=== PATIENT | female | born 1940 | race Caucasian/White ===

== ENCOUNTER → 2023-08-22 11:59 | Outpatient (REF) | payer OTHER, SELFPAY ==
[2023-08-22 13:39] LABS: Blood Urea Nitrogen 44 mg/dl (7-17); Calcium 10.3 mg/dl (8.4-10.2); Carbon Dioxide 23 mmol/L (22-30); Chloride 99 mmol/L (98-107); Glucose 152 mg/dl (70-99); Potassium 4.1 mmol/L (3.5-5.1); Sodium 139 mmol/L (135-145); eGFR 29.76
== END ==
LOC: OLABPV 11:59
PROVIDERS: ATTENDING PHYSICIAN Family Medicine
DX: R79.9 Abnormal finding of blood chemistry, unspecified (principal)
CPT/HCPCS: 36415; 80048

== ENCOUNTER → 2023-09-05 11:51 | Outpatient (REF) | payer OTHER, SELFPAY ==
[2023-09-05 13:19] LABS: Blood Urea Nitrogen 42 mg/dl (7-17); Calcium 10.3 mg/dl (8.4-10.2); Carbon Dioxide 25 mmol/L (22-30); Chloride 102 mmol/L (98-107); Glucose 181 mg/dl (70-99); Potassium 4.2 mmol/L (3.5-5.1); Sodium 138 mmol/L (135-145); eGFR 26.04
== END ==
LOC: OLABPV 11:51
PROVIDERS: ATTENDING PHYSICIAN Family Medicine
DX: N18.31 Chronic kidney disease, stage 3a (principal)
CPT/HCPCS: 36415; 80048

== ENCOUNTER → 2023-09-11 09:35 | Outpatient (REF) | payer OTHER, SELFPAY | LOC: RAD 09:35 | PROVIDERS: ATTENDING PHYSICIAN Nurse Practitioner Adult Health | DX: I10 Essential (primary) hypertension (principal); N32.81 Overactive bladder; N18.32 Chronic kidney disease, stage 3b | CPT/HCPCS: 76770 ==

== ENCOUNTER → 2023-09-25 11:18 | Outpatient (REF) | payer OTHER, SELFPAY ==
[2023-09-25 12:14] LABS: Blood Urea Nitrogen 36 mg/dl (7-17); Calcium 9.8 mg/dl (8.4-10.2); Carbon Dioxide 27 mmol/L (22-30); Chloride 103 mmol/L (98-107); Glucose 133 mg/dl (70-99); Sodium 140 mmol/L (135-145); eGFR 56.25
== END ==
LOC: OLABPV 11:18
PROVIDERS: ATTENDING PHYSICIAN Nurse Practitioner Adult Health
DX: E11.69 Type 2 diabetes mellitus with other specified complication (principal); N18.31 Chronic kidney disease, stage 3a
CPT/HCPCS: 36415; 80048

== ENCOUNTER → 2023-11-22 14:24 | Outpatient (REF) | payer OTHER, SELFPAY | LOC: EMG 14:24 | PROVIDERS: ATTENDING PHYSICIAN Physician Assistant | DX: M54.16 Radiculopathy, lumbar region (principal); R29.898 Other symptoms and signs involving the musculoskeletal system | CPT/HCPCS: 95886; 95911 ==

== ENCOUNTER → 2024-01-15 13:23 | Outpatient (REF) | payer OTHER, SELFPAY | LOC: PAVMRI 13:23 | PROVIDERS: ATTENDING PHYSICIAN Physician Assistant; FAMILY PHYSICIAN Family Medicine | DX: M54.16 Radiculopathy, lumbar region (principal); Z98.890 Other specified postprocedural states | CPT/HCPCS: 72158; A9575 ==

== ENCOUNTER 2024-02-14 18:21 | Inpatient (IN) | payer OTHER, SELFPAY ==
[2024-02-14] VITALS (11 sets, daily range): BP systolic 167–197; BP diastolic 62–89; BMI 35.5; BMI 34.5
[2024-02-14 15:17] LABS: Glucose - Point of Care 121 mg/dl (70-99)
--- NOTE | 2024-02-14 15:28 | CON.NEURO ---
Consultation
Order
Date of Consultation: 02/14/24
Requesting Provider:
Reason for Consult: stroke alert
pre hospital notification called in: 14:49
HPI: This is an 83-year-old right-handed woman who presented to [facility] on February 14, 2024 with language dysfunction. According to the patient she developed difficulties expressing her thoughts around 2 PM today shortly after she
completed her physical therapy. No associated headaches, change in vision strength, sensation or history of seizures. Ms. Muniz states that her deficits have nearly resolved. SBP by EMG was reportedly in 190s.
ER VS: 167/76,78, afebrile.
Labs: pending.
CT head-moderate subcortical and periventricular white matter hypodensities; chronic lacunar infarct within the left denny radiata.
CTA Head: No large vessel occlusion.
CTA Neck: 50% stenosis of the proximal right ICA
PDMP: Oxycodone-Acetaminophen 5-325 28 tabs filled in on 01/24/2024, 12/13/2023
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
PSH: laminectomies at L2, L3, and L4, BL TKA,
SH: resident at [facility], nonsmoker
FH:no FH of strokes
All:JUNIOR Inhibitors
ROS:Constitutional: Negative. Negative for chills, fever and unexpected weight change.
Eyes: Negative. Negative for photophobia, pain and visual disturbance.
Respiratory: Negative for cough, choking and shortness of breath.
Cardiovascular: Negative for chest pain, palpitations and leg swelling.
Endocrine: Negative. Negative for cold intolerance.
Genitourinary: Negative for dysuria, flank pain and urgency.
Musculoskeletal: positive for back pain
Skin: Negative for rash.
Allergic/Immunologic: Negative. Negative for immunocompromised state.
Neurological: positive for chronic R leg numbness and L leg weakness, transient aphasia
General: Well developed. In no acute distress.
Cardio: Regular rate and rhythm without murmur. Extremities are without cyanosis or edema.
Neuro:
Mental Status: Alert, oriented to self, place. Anxious. Able to correctly name all items on NIH cards. No hemineglect
Cranial Nerves: Pupils are equally round and reactive to light. EOMs full. Visual hahn full to confrontation. No ptosis. No nystagmus. V1-V3 intact to light touch and pinprick bilaterally, symmetric. Face symmetric. Mildly impaired hearing
AU. The palate elevated well. SCMs and traps 5/5. Tongue midline. No dysarthria.
Motor: NO PD or leg drift
Reflexes: 2+ throughout the upper extremities and knees. 2/2 in AJs. Plantar responses flexor bilaterally.
Sensory: no extinction to DSS
Coordination: No dysmetria
Gait: deferred
Assessment and Plan:
I. Acute L MCA territory TIA.
II. Hypertensive emergency
III. Severe L4/L5 central canal stenosis with R radiculopathy
IV. Chronic left denny radiata infarct.
-Continue Telemetry monitoring.
-Aspiration precautions.
-Cautious lowering of BP by approximately 15 % during the first 24 hours is SBP >220 mmHg or diastolic blood pressure >120 mmHg;
-Restart antihypertensive medications during if BP>140/90 mmHg who are neurologically stable in 24 to 48 hours after stroke onset;
-TTE with bubble studies
-Continue ASA 81 mg QD indefinitely.
-Plavix 75 mg QD for 21 days.
-Lipitor 40 mg QHS.
-Please check HbA1C, LDL.
-HAMZAH/ILR if no events of Telemetry and normal TTE.
-PT.
-DVT prophylaxis.
I personally reviewed all radiology and labs along with past medical records pertinent to current medical problems. Total time spent in patient care is 60 minutes.
Thank you for allowing us to participate in the care of this patient. We will continue to follow. Please do not hesitate to contact us with any questions or concerns.
This is a 81
Subjective/Objective
Subjective Data
Date of Service: February 14, 2024
Objective Data
Vital Signs
Temp Pulse Resp BP Pulse Ox
36.9 C 78 14 167/76 98
02/14/24 15:20 02/14/24 15:20 02/14/24 15:20 02/14/24 15:20 02/14/24 15:20
Patient Allergies
codeine [Codeine] Allergy (Verified 02/14/24 15:27)
Nausea
Medications
-
Home Medications
�Medication �Instructions �Recorded
levothyroxine 125 mcg tablet 88 mcg PO DAILY 03/09/09
(Synthroid)
propranolol 120 mg capsule,24 120 mg PO DAILY 03/09/09
hr,extended release
Chlorthalidone 25 mg PO DAILY 12/08/10
atorvastatin 40 mg tablet 40 mg PO DAILY 05/11/13
losartan 100 mg tablet (Cozaar) 100 mg PO DAILY 05/11/13
metformin 500 mg tablet 850 mg PO DAILY 05/11/13
duloxetine 20 mg capsule,delayed 20 mg PO DAILY 08/26/18
release
trimethoprim 100 mg tablet 100 mg PO DAILY 08/26/18
(Proloprim)
acetaminophen 325 mg tablet 650 mg (2 x 325 mg) PO Q4HPRN PRN 08/28/18
mild pain/RICHMOND/temp> 100.4F
aspirin 325 mg tablet,delayed 325 mg PO DAILY 08/28/18
release
docusate sodium 100 mg capsule 100 mg PO BID 08/28/18
gabapentin 400 mg capsule 1,200 mg (3 x 400 mg) PO BID ##60 08/28/18
oxycodone 5 mg tablet 5 mg PO Q4HPRN PRN mild pain ##12 08/28/18
sennosides 8.6 mg tablet (senna) 2 tab PO BID 08/28/18
Vital Signs and Labs
-
Vital Signs and Labs:
Vital Signs
Temp Pulse Resp BP Pulse Ox
36.9 C 74 14 187/87 97
02/14/24 15:20 02/14/24 15:30 02/14/24 15:30 02/14/24 15:30 02/14/24 15:30
Lab Results
02/14/24 15:32
Home Medications
-
Home Medications
levothyroxine 125 mcg tablet (Synthroid) 88 mcg PO DAILY 03/09/09
propranolol 120 mg capsule,24 hr,extended release 120 mg PO DAILY 03/09/09
Chlorthalidone 25 mg PO DAILY 12/08/10
atorvastatin 40 mg tablet 40 mg PO DAILY 05/11/13
losartan 100 mg tablet (Cozaar) 100 mg PO DAILY 05/11/13
metformin 500 mg tablet 850 mg PO DAILY 05/11/13
duloxetine 20 mg capsule,delayed release 20 mg PO DAILY 08/26/18
trimethoprim 100 mg tablet (Proloprim) 100 mg PO DAILY 08/26/18
acetaminophen 325 mg tablet 650 mg (2 x 325 mg) PO Q4HPRN PRN mild pain/RICHMOND/temp> 100.4F 08/28/18
aspirin 325 mg tablet,delayed release 325 mg PO DAILY 08/28/18
docusate sodium 100 mg capsule 100 mg PO BID 08/28/18
gabapentin 400 mg capsule 1,200 mg (3 x 400 mg) PO BID ##60 08/28/18
oxycodone 5 mg tablet 5 mg PO Q4HPRN PRN mild pain ##12 08/28/18
sennosides 8.6 mg tablet (senna) 2 tab PO BID 08/28/18
[2024-02-14 15:40] LABS: % Basophils 0.3 % (0-2); % Eosinophils 2.2 % (0-6); % Immature Granulocytes 0.3 % (0-0.5); % Lymphocytes 13.9 % (20.5-51.1); % Monocytes 9.8 % (1.7-9.3); % Neutrophils 73.5 % (42.2-75.2); Absolute Eosinophils 0.2 10^3/uL (0-0.7); Absolute Monocytes 0.7 10^3/uL (0.1-0.6); Absolute Neutrophils 5.3 10^3/uL (1.4-6.5); Mean Corp Hgb Conc. 35.1 g/dL (33.0-37.0); Mean Corpuscular Hgb 29.8 pg (27.0-31.0); Mean Corpuscular Volume 84.9 fL (81.0-99.0); Mean Platelet Volume 10.4 fL (7.4-10.4); Nucleated Red Blood Cells % 0 %; Platelet Count 245 10^3/uL (130-400); Red Blood Cell Count 4.36 10^6/uL (4.20-5.40); Red Cell Dist. Width 13.2 % (11.5-14.5); White Blood Cell Count 7.1 10^3/uL (4.8-10.8)
[2024-02-14 15:50] LABS: PT 14.3 Sec (11.4-14.6)
[2024-02-14 15:51] LABS: APTT 32.2 Sec (23.4-35.0)
--- NOTE | 2024-02-14 16:03 | ED.CVA ---
History of Present Illness
General
Chief Complaint: CVA/TIA Symptoms
Source: patient, records and ambulance crew
Exam Limitations: none
Time Seen by Provider: 02/14/24 15:30
Nursing documentation reviewed up to this point in time: agreed with
Onset of Stroke Symptoms
Onset of symptoms known: Yes
Date of onset of symptoms: 02/14/24
Time of onset of symptoms: 13:00
Time pt last seen normal is known: Yes
Date last time pt seen normal: 02/14/24
Time last time pt seen normal: 12:00
History of Present Illness
History of Present Illness:
Patient is a 83-year-old female who was at physical therapy today and when she came out to get on her scooter she was talking to friends but not making any sense. Patient knew the words that she wanted to say but they were coming out wrong.
Patient denied any visual changes no new focal weakness. Patient has spinal stenosis and feels like her right side is weaker than her left as well as her lower extremities being weaker but this remained unchanged. Patient denied any ataxia.
Patient denies any previous history of similar episodes. Patient denied any GI or symptoms. Patient denies headache, chest pain, shortness of breath or palpitations. Patient denies any recent illnesses or injuries. Patient did get a recent
COVID-vaccine.
Past History
Past History
ED Past Medical History: GERD, HTN, Hypercholesterolemia, NIDDM and Other (Neuropathy, spinal stenosis, DJD, irritable bowel, diverticulosis, glaucoma)
Social History
Tobacco: Non-smoker
Personal:
Living: with family
Review of Systems
Review of Systems
All Other Systems: ROS reviewed and negative except as documented in HPI and ROS
Constitutional: Reports no symptoms
EENT: Reports no symptoms
Respiratory: Reports no symptoms
Cardiac: Reports no symptoms
ABD/GI: Reports no symptoms
: Reports no symptoms
Musculoskeletal: Reports no symptoms
Skin: Reports no symptoms
Neurological: Reports other (Speech difficulty); Denies headache, weakness or numbness
Hematologic/Lymphatic: Reports no symptoms
Psychiatric: Reports no symptoms
Phy Exam
Physical Exam
Physical Exam:
Physical Exam
General: No apparent distress, alert and appropriate, obese, well hydrated
HENT: Normocephalic, supple with no lymphadenopathy, no thyromegaly
Eyes: Clear sclera, conjuctiva without injection
Heart: Regular rhythm and rate. No S3, S4. No murmur. No NVD, bruit
Lungs: No respiratory distress, no stridor, lung sounds clear and equal bilaterally
Abdomen: Soft, nontender, no organomegaly, no CVA tenderness, BS good
Neuro: Alert and oriented x 3, CN II - XII intact, no motor focality, no cerebellar dysfunction
Skin: no rash
Psychiatric: well kept. interactive and cooperative
Extremities: No edema, cyanosis, tenderness, Good and equal peripheral pulses.
Scores
NIH Stroke Score
Level of Consciousness: 0 - Alert
LOC Questions: 0-Answers both correctly
LOC Commands: 0-Performs both correctly
Best Horizontal Gaze: 0-Normal
Visual Morales: 0=Normal, no visual loss
Facial Palsy: 0=Normal, symmetrical
Motor - Right Arm: 0=No drift 10 seconds
Motor - Left Arm: 0=No drift 10 seconds
Motor - Right Le-No drift 5 seconds
Motor - Left Le-No drift 5 seconds
Limb Ataxia: 0-Absent
Sensation: 0-Normal
Best Language: 0-No aphasia
Dysarthria: 0-Normal
Extinction and Inattention: 0-No abnormality
Total Score:: 0
Course
Orders/Labs/Results
Orders:
Orders
02/14/24 14:58
CT HEAD STROKE ALERT W/o Cont Stat
Comment:
Reason For Exam: stroke alert/ expressive aphasia
02/14/24 15:03
CT HEAD/NECK ANG STROKE ALERT Urgent
Comment:
Reason For Exam: stroke alert/ expressive aphasia
02/14/24 15:18
Electrocardiogram (*1) Urgent
Reason for Study: Other
Other Reason for Exam: Possible Stroke
Bedside Glucose- Treatment ONCE
Cardiac Monitoring- Treatment ONCE
EKG- Treatment ONCE
Vital Signs As Directed
Frequency: Other
Weight As Directed
Frequency: Once
Comment: ZERO STRETCHER SCALE FOR ACCURATE WEIGHT
02/14/24 15:32
Basic Metabolic Panel Urgent
Complete Blood Count/With Diff Urgent
PTT Urgent
Prothrombin Time Urgent
Troponin I Urgent
Abnormal Lab Results
02/14/24 02/14/24
15:16 15:32
Absolute Lymphs (auto) 1.0 L 10^3/uL
(1.2-3.4)
Absolute Monos (auto) 0.7 H 10^3/uL
(0.1-0.6)
Lymphocytes % 13.9 L %
(20.5-51.1)
Monocytes % 9.8 H %
(1.7-9.3)
POC Glucose 121 H mg/dl
(70-99)
02/14/24 15:32
02/14/24 15:32
Vital Signs
Initial and Last Documented VS:
Initial Vital Signs
Pulse Resp Pulse Ox
78 16 96
02/14/24 15:17 02/14/24 15:17 02/14/24 15:17
Last Documented Vital Signs
Temp Pulse Resp BP Pulse Ox
98.4 F 74 14 187/87 97
02/14/24 15:20 02/14/24 15:30 02/14/24 15:30 02/14/24 15:30 02/14/24 15:30
*Radiology
Radiology exam reviewed: radiology read reviewed (No major vessel occlusion and otherwise unremarkable)
*Pulse Oximetry
Patient hypoxic: no
*EKG
Interpreted by ED Provider?: Yes
EKG Intrepretation Date: 02/14/24
EKG Intrepretation Time: 16:08
Interpretation: normal
Comparison EKG: no changes
Heart Rate: 72
Rate: normal
Rhythm: sinus
[place]: normal axis
Interval: normal interval
QRS Pattern: normal QRS
Ischemia: no ischemia
*Collections Officer Interpretation
Rate: normal
Interpretation: normal
Heart Rate: 72
Rhythm: sinus
*Critical Care Note
Total Time (30-74mins, 75-104mins- exclusive of procedures): Not Applicable
ED Attending Note
-
Portions of this chart may have been created with voice recognition software.� Occasional wrong word or��sound alike� substitutions may have occurred due to the inherent limitations of voice recognition software.
Discharge Plan
Departure
Patient Disposition: Admit
Date of Disposition: 02/14/24
Time of Disposition: 16:09
Admit to: Telemetry
Admit to doctor: Hospitalist
Presentation/result/management discussed w/ accepting MD/DO: neurology
Patient with high blood pressure during this ER visit?: Yes
Condition: Fair
Covid-19: Not Applicable
Discharge Problem:
TIA (transient ischemic attack)
Prescriptions:
No Action
metformin 500 mg Tablet
500 mg PO DAILY
famotidine [Pepcid] 40 mg Tablet
40 mg PO HS
aspirin 81 mg Tablet,Delayed Release (Dr/Ec)
81 mg PO DAILY
levothyroxine [Synthroid] 88 mcg Tablet
88 mcg PO DAILY
pantoprazole [Protonix] 40 mg Tablet,Delayed Release (Dr/Ec)
40 mg PO DAILY
losartan 100 mg Tablet
100 mg PO DAILY
rosuvastatin [Crestor] 40 mg Tablet
40 mg PO QPM
mirabegron [Myrbetriq] 50 mg Tablet Extended Release 24 Hr
50 mg PO DAILY
acetaminophen [Tylenol Extended Release] 650 mg Tablet Extended Release
650 mg PO TID
oxycodone-acetaminophen [Percocet] 5-325 mg Tablet
1 tab PO Q6HPRN PRN (Reason: severe pain)
propranolol 120 mg Capsule,Extended Release 24hr
120 mg PO DAILY
Referrals:
JOSE FRANCISCO BANDA [Other]
Interventions
Interventions:
*Risk Screen - Suicide Last Done: 02/14/24 15:24
*General Assessment Last Done: 02/14/24 15:24
*Neglect/Abuse Screening Last Done: 02/14/24 15:24
ED- Fall Risk Assessment Last Done: 02/14/24 15:42
*ED COVID-19 Vaccine History Last Done: 02/14/24 15:24
ED- Pulmonary Assessment Last Done: 02/14/24 15:42
ED- Neurological Assessment Last Done: 02/14/24 15:42
ED- Cardiac Assessment Last Done: 02/14/24 15:42
ED Swallowing Screen Last Done: 02/14/24 15:42
Discharge Date and Time
Print Language: KYRGYZ
[2024-02-14 16:04] LABS: Troponin I < 0.012 ng/ml
[2024-02-14 16:05] LABS: Blood Urea Nitrogen 25 mg/dl (7-17); Carbon Dioxide 27 mmol/L (22-30); Chloride 103 mmol/L (98-107); Estimated Creatinine Clearance 51 ml/min; Glucose 129 mg/dl (70-99); Sodium 142 mmol/L (135-145); eGFR 56.25
--- NOTE | 2024-02-14 17:15 | HPS.HSE ---
Family Physician
-
Family Physician: JOSE FRANCISCO BANDA
Chief Complaint
-
Expressive aphasia
History of Present Illness
83-year-old female with chronic ambulatory dysfunction secondary to spinal stenosis chronic lower back pain. She goes to weekly physical therapy. While at physical therapy today she completed knee bends while sitting, standing in place while not
holding anything to steady her balance. She reports after walking out to go to her motorized scooter she attempted to sit down and turn the scooter on when she was having difficulty remembering how to do this. She reports her friend was present
with her at the time. She also reports she had difficulty expressing what she wanted to say according to her friend. She denies any headache, fever, chills, sore throat, recent illness, chest pain, palpitations, shortness breath, cough, abdominal
pain, nausea, vomiting, diarrhea, urinary symptoms. She currently is awake alert oriented x 3 with clear speech. She does have unsteady gait when standing from wheelchair to transfer to the bed, but this is chronic for the patient. She has past
medical history of CVA left denny radiata, Chronic back pain s/p laminectomy x 4,Spinal stenosis,Neuropathy, HTN, HLD, DM2, Hypothyroidism, Glaucoma,Mild aortic insufficiency, GERD, IBS, Stress incontinence urine, Frequent UTIs, OA, Chronic
ambulatory dysfunction, Frequent falls.
Medical History
Past Medical History
Past Medical History: Reports Other
Additional Past Medical History:
CVA
Chronic back pain s/p laminectomy x 4
Neuropathy
HTN
HLD
DM2
Hypothyroidism
Glaucoma
Mild aortic insufficiency
Spinal stenosis
GERD
IBS
Stress incontinence urine
Frequent UTIs
OA
Chronic ambulatory dysfunction
Frequent falls
Past Surgical History: Reports Other
Additional Past Surgical History:
Pins and right wrist 2002
Right torn meniscus 2002
Ovarian cyst 1977
Left total knee replacement March 2009
Right total knee replacement
Lumbar surgery 2010
Right TKR
Laminectomy x 4
Social History
Tobacco: Non-smoker
Alcohol: None
Drug: None
Personal: Single
Living: Alone
Employment: Retired
Family History
Family History: Not pertinent
Allergies / Home Medications
Allergies reflects when Allergies were last updated in [employer].
Home Medications with original date entered in [employer]
Allergy/Medication List:
Allergies
Allergy/AdvReac Type Severity Reaction Status Date / Time
codeine [Codeine] Allergy Nausea Verified 02/14/24 15:27
Home Medications
acetaminophen 650 mg tablet,extended release 650 mg PO TID 02/14/24
aspirin 81 mg tablet,delayed release 81 mg PO DAILY 02/14/24
famotidine 40 mg tablet (Pepcid) 40 mg PO HS 02/14/24
levothyroxine 88 mcg tablet (Synthroid) 88 mcg PO DAILY 02/14/24
losartan 100 mg tablet 100 mg PO DAILY 02/14/24
metformin 500 mg tablet 500 mg PO DAILY 02/14/24
mirabegron 50 mg tablet,extended release 24 hr (Myrbetriq) 50 mg PO DAILY 02/14/24
oxycodone-acetaminophen 5 mg-325 mg tablet (Percocet) 1 tab PO Q6HPRN PRN severe pain 02/14/24
pantoprazole 40 mg tablet,delayed release (Protonix) 40 mg PO DAILY 02/14/24
propranolol 120 mg capsule,24 hr,extended release 120 mg PO DAILY 02/14/24
rosuvastatin 40 mg tablet (Crestor) 40 mg PO QPM 02/14/24
Review of Systems
-
History Source: Patient
A 12 point ROS was completed and negative except as noted: Yes
Constitutional: Denies Fever, Fatigue or Chills
EENT: Reports Other (Expressive aphasia); Denies Sore Throat or Runny Nose
Respiratory: Denies Cough, Hemoptysis or Trouble Breathing
Cardiac: Denies Chest Pain, Diaphoresis, Palpitations or Syncope
Abdomen/GI: Denies Abdominal Pain, Nausea, Vomiting, Diarrhea, Constipated, Bloody Stools or Black Stools
: Denies Dysuria, Frequency, Flank Pain, Incontinence, Difficulty Voiding or Urgency
Musculoskeletal: Denies Joint Pain, Joint Swelling or Edema
Skin: Denies Itching or Rash
Neurological: Denies Dizzy, Headache, Weakness or Numbness
Endocrine: Reports No Symptoms
Hematologic/Lymphatic: Reports No Symptoms
Psych: Reports Calm
Physical Exam
Vital Signs
Vital Signs
Temp Pulse Resp BP Pulse Ox
98.4 F 71 18 180/75 95
02/14/24 15:20 02/14/24 16:00 02/14/24 16:00 02/14/24 16:00 02/14/24 16:00
Physical Exam
General: Comfortable and Conversant; No Pain, Fever, Chills or Slurred Speech
HEENT: NormoCephalic, Anicteric, Moist mucous membranes, PERRLA, [place] Conjunctivae, No Ptosis and Neck Nontender
Respiratory: Clear; No Wheezes, Rales or Rhonchi
Cardiac: S1/S2 and Regular Rhythm; No Murmur, Rub, Gallop or Peripheral Edema
Breast: Deferred by me
GI: Soft, Non Distended, Normal Bowel Sounds and No Hepatosplenomegaly
Rectal: Deferred by Provider
Genito-urinary: Deferred by me
Musculoskeletal: No Clubbing, No Cyanosis and No Edema
Skin: Warm and Dry; No Rash or Jaundice
Neuro: AO x 3, Nonfocal/grossly intact, Cranial Nerves Intact, No Sensory Deficits and Other (Chronic unsteady/ataxic gait due to chronic lower back pain/spinal stenosis 5 out of 5 strength upper and lower extremities); No Slurred Speech, Facial
Droop, Tremors or Sedated
Psych: Calm
Laboratory Results
-
02/14/24 15:32
02/14/24 15:32
Laboratory Results
PT 14.3 Sec (11.4-14.6) 02/14/24 15:32
INR 1.10 02/14/24 15:32
APTT 32.2 Sec (23.4-35.0) 02/14/24 15:32
Total Bilirubin Cancelled 02/14/24 15:32
AST Cancelled 02/14/24 15:32
ALT Cancelled 02/14/24 15:32
Alkaline Phosphatase Cancelled 02/14/24 15:32
Troponin I < 0.012 ng/ml 02/14/24 15:32
Data Reviewed
-
Diagnostic Radiology: Report Reviewed by me
CT Scan: Report Reviewed by me
Lab Data: Labs Reviewed by me
Impression/Plan
-
Impression/plan:
Admit to telemetry
#Expressive aphasia with concern for Acute left MCA territory TIA
Hx CVA chronic lacunar infarct within the left denny radiata
-Consult neurology
-Aspirin 81 mg daily
-Plavix 75 mg daily x 21 days
-Lipitor 40 mg nightly , stop prior Crestor 40 mg every afternoon
Check HgbA1c, lipid profile
-TTE with bubble study-(discussed with Dr. Wilsonaike no need for official cardiology consult for bubble study)
-Check MRI brain
CT head-moderate subcortical and periventricular white matter hypodensities; chronic lacunar infarct within the left denny radiata.
CTA Head: No large vessel occlusion.
CTA Neck: 50% stenosis of the proximal right ICA
2D echo 12/15/2022: EF 70 to 75%, no wall abnormalities, normal RVS, RVSF
#Hypertensive emergency/Hx benign HTN
BP 197/74
Allow permissive HTN SBP greater than 220 diastolic> 120
-Restart antihypertensive medications during if BP>140/90 mmHg who are neurologically stable in 24 to 48 hours after stroke onset
-IV hydralazine 5 mg every 6 hours as needed SBP> 220 diastolic>110
-HOLD current propranolol 120 mg daily, losartan 100 mg daily
#HLD
check lipid profile
-Add Lipitor 40 mg at bedtime
#DM2
Accu-Cheks with SSI, check HgbA1c
-Hold metformin 500 mg daily
#Hypothyroidism
-Continue levothyroxine 88 mcg p.o. daily
#GERD
#IBS
-Continue Pepcid 40 mg at bedtime, Protonix 40 mg daily
#Glaucoma
#Mild aortic insufficiency
#Stress incontinence urine
#Frequent UTIs
-Continue Myrbetriq 50 mg daily
#Chronic back pain s/p laminectomy x 4
# Spinal stenosis
#Neuropathy
#L4, L5 central Canal stenosis with right radiculopathy
-Continue chronic Percocet 1 tab p.o. every 6 hours as needed severe pain,
-Continue Tylenol 650 mg 3 times daily scheduled
#Chronic ambulatory dysfunction
#Frequent falls
-Fall precautions
-Patient uses walker in her home, rollator and motorized scooter outside of home
-She attends weekly physical therapy for balance
-PT/OT consult
#OA
No reported meds
DVT prophylaxis
SCDs
Full code
--- NOTE | 2024-02-14 21:45 | PTCARENOTE ---
Received patient from ER. Jada3. No complaints at this time. NIH- 0, SR in 80s on tele. POC reviewed with patient.
[2024-02-14] MEDS: LIPITOR 40 MG PO (22:02)
[2024-02-14] MEDS: PEPCID 40 MG PO (22:02)
[2024-02-14 22:44] LABS: Glucose - Point of Care 165 mg/dl (70-99)
[2024-02-15] VITALS (8 sets, daily range): BP systolic 147–210; BP diastolic 60–96; PULSE 79; O2SAT 93
[2024-02-15] MEDS: ATIVAN 0.5 MG PO (03:30)
[2024-02-15] MEDS: SYNTHROID 88 MCG PO (04:41)
--- NOTE | 2024-02-15 07:25 | W.PN.HOSP.TC ---
Today's Communication/Plan
-
-Follow up PT/OT
-Adjust BP medications
Assessment / Plan
Assessment / Plan
Impression: The patient is a 83 year old female who has PMH of CVA (TIA), Chronic back pain s/p laminectomy x 4, Neuropathy, HTN, HLD, DM2, Hypothyroidism,Glaucoma,Mild aortic insufficiency,Spinal stenosis,GERD,IBS,Stress incontinence urine,
Frequent UTIs, OA,Chronic ambulatory dysfunction presented to ER complaining from difficulty with her speeching on 02/14/24. She reported she had difficulty expressing what she wanted to say according to her friend. She reported having difficulty
with finding the words. CT head, Neck/Head CTA and Brain MRI was obtained and She was seen by neurologist and was started on Plavix along asprin.
#Expressive aphasia with concern hypertensive encephalopathy vs CVA (TIA)
-Head CT/Head/Neck CTA: no large vessel occlusion. Moderate subcortical and periventricular white matter hypodensities. Chronic lacunar infarct in the left denny radiator. 50% stenosis of the proximal right ICA
-Brain MRI:no acute infarct
-Hx CVA chronic lacunar infarct within the left denny radiata
-Appreciated Neurology recc : Aspirin 81 mg daily+ Plavix 75 mg daily x 21 days /
-TTE: Non-remarkable for cardioembolic event
#Essential Hypertension
-BP still on the higher side
-Started nifedipine 30 mg PO daily
-Continue propranolol 120 mg daily, losartan 100 mg daily
#HLD
-LDL 38
- Lipitor 40 mg nightly , stop prior Crestor 40 mg every afternoon
#DM2
Accu-Cheks with SSI, check HgbA1c
-Hold metformin 500 mg daily
-HbA1C- 7.2
#Hypothyroidism
-Continue levothyroxine 88 mcg p.o. daily
#GERD
- Protonix 40 mg daily
-Continue Pepcid 40 mg at bedtime,
#Stress incontinence urine:
-Mirabegron
#L4, L5 central Canal stenosis with right radiculopathy
-Continue chronic Percocet 1 tab p.o. every 6 hours as needed severe pain,
-Continue Tylenol 650 mg 3 times daily scheduled
#Frequent falls
-Fall precautions
--Patient uses walker in her home, rollator and motorized scooter outside of home
-She attends weekly physical therapy for balance
-PT/OT consult
#IBS
#Glaucoma
#Mild aortic insufficiency
#Chronic back pain s/p laminectomy x 4
# Spinal stenosis
#Neuropathy
#Chronic ambulatory dysfunction
#OA
#DVT prophylaxis
SCDs
Anticipated Discharge: 24 - 48 hours
Subjective/Interval History
-
Date of Service: February 15, 2024
The patient reported her slurred speech improved a lot. She reported having chronic pain on her back and chronic weakness on her legs due spinal stenosis.
Objective Data
-
Labs:
Laboratory Results
02/15/24
06:00
WBC Pending
Hgb Pending
Hct Pending
Plt Count Pending
Sodium Pending
Potassium Pending
Chloride Pending
Carbon Dioxide Pending
BUN Pending
Creatinine Pending
Glucose Pending
Calcium Pending
Total Bilirubin Pending
AST Pending
ALT Pending
Alkaline Phosphatase Pending
Vital Signs:
Vital Signs
Temp Pulse Resp BP Pulse Ox
97.8 F 75 20 155/79 93
02/15/24 03:06 02/15/24 03:06 02/15/24 03:06 02/15/24 03:06 02/15/24 03:06
Review of Systems
-
History Source: Patient
EENT: Reports No Symptoms Reported
Respiratory: Reports No Symptoms
Cardiac: Reports No Symptoms
Abdomen/GI: Reports No Symptoms
Genitourinary: Reports No Symptoms
Musculoskeletal: Reports Other (See HPI )
Skin: Reports No Symptoms
Neuro: Reports Other (See HPI )
Physical Exam
-
General: No Apparent Distress, Appears Chronically Ill and Obese
HEENT: Normocephalic and Atraumatic
Respiratory: Clear to Auscultation
Cardiac: Regular Rhythm, S1/S2 and Murmur
GI: Soft and Nontender
Musculoskeletal: No Clubbing, No Cyanosis, No Edema and Other (Bilateral chronic lowe extremity weakness ( not new inset-no change) )
Skin: Warm and Dry
Neuro: Awake, Alert, Oriented, AO x 3 and Slurred Speech (Reports her speech improved since admission/ No dysatria )
[2024-02-15 08:14] LABS: % Basophils 0.2 % (0-2); % Eosinophils 2.4 % (0-6); % Immature Granulocytes 0.2 % (0-0.5); % Lymphocytes 14.8 % (20.5-51.1); % Monocytes 9.3 % (1.7-9.3); % Neutrophils 73.1 % (42.2-75.2); Absolute Eosinophils 0.1 10^3/uL (0-0.7); Absolute Lymphocytes 0.8 10^3/uL (1.2-3.4); Absolute Monocytes 0.5 10^3/uL (0.1-0.6); Hematocrit 36.8 % (37.0-47.0); Hemoglobin 12.7 g/dL (12.0-16.0); Mean Corp Hgb Conc. 34.5 g/dL (33.0-37.0); Mean Corpuscular Hgb 29.4 pg (27.0-31.0); Mean Corpuscular Volume 85.2 fL (81.0-99.0); Mean Platelet Volume 10.6 fL (7.4-10.4); Nucleated Red Blood Cells % 0 %; Platelet Count 227 10^3/uL (130-400); Red Blood Cell Count 4.32 10^6/uL (4.20-5.40); Red Cell Dist. Width 13.2 % (11.5-14.5); White Blood Cell Count 5.5 10^3/uL (4.8-10.8)
--- NOTE | 2024-02-15 08:24 | W.PN.UPDATE ---
Update Note
Progress Note Update
83-year-old female admitted with difficulty expressing words and also remembering how to do things, and also unsteady gait.
CT head/CTA-no large vessel occlusion. Moderate subcortical and periventricular white matter hypodensities. Chronic lacunar infarct in the left denny radiator. 50% stenosis of the proximal right ICA
MRI of the brain-no acute infarct. 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 Innumerable symmetric dilated perivascular spaces throughout BG and caudate nuclei bilaterally. Tiny chronic intraparenchymal microhemorrhages in the right
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 Moderate discogenic DJD C3-C4 with small central disc herniation through mild spinal cord compression and central canal stenosis.
Seen earlier, late documentation.
CVS: S1-S2 normal
Chest: CTA B/L
Abdomen: Soft, NT / Bowel sounds present
Extremities: No edema, normal pulses
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
# Expressive aphasia, ataxia
Admitted for stroke workup
History of TIA
Continue aspirin and Plavix as ordered
Continue statin
Echo transthoracic-normal LV systolic function. EF 60 to 65%. No regional wall motion abnormalities. Mild concentric LVH. Mitral inflow pattern suggestive of abnormal relaxation. Normal RV size and function.
Neurology consulted and evaluated
# Hypertensive emergency and poorly controlled hypertension
Possible TIA continue aspirin. Plavix for 21 days
Continue statin
Continue propranolol and losartan
Nifedipine 30 mg added as blood pressure is still elevated
# Lvxrigym-Phiv-Jibnw and sliding scale coverage
Check hemoglobin A1c
Hold metformin with IV dye
# Hyperlipidemia-continue statin
# Hypothyroidism-continue Synthroid 88 mcg daily
# GERD-continue Pepcid and Protonix
# IBS
# Chronic back pain with laminectomy/Spinal stenosis/osteoarthritis/neuropathy/L4-5 central canal stenosis with right radiculopathy/discogenic DJD X1-L9-syaabidv Percocet. Chronic opiate dependence for pain control
# Chronic ambulatory dysfunction with frequent falls-uses a walker at home and motorized scooter outside. She attends outpatient PT
# Obesity per BMI
# DVT prophylaxis-Lovenox
# Full code
Discussed with son at bedside earlier today
[2024-02-15 08:48] LABS: VerifyNow Aspirin 517 ARU
[2024-02-15 09:13] LABS: Glycohemoglobin (HgbA1c) 7.2 % (4.0-5.6)
--- NOTE | 2024-02-15 09:34 | W.PN.NEURO.1 ---
Today's Communication / Plan
-
.
Subjective/Objective
Subjective Data
Date of Service: February 15, 2024
Neurology follow-up note
24h events: hypertensive up to 210/96 in the morning, afebrile.
Ms. Muniz states that her expressive difficulties lasted for several hours. No reports of headaches, change in vision or strength.
Brain MRI�showed no acute infarcts, severe white matter leukoaraiosis in both cerebral hemispheres, innumerable symmetric dilated perivascular spaces throughout the basal ganglia and caudate nuclei bilaterally.
tiny chronic intraparenchymal microhemorrhages in the right frontal lobe, left thalamus, and right cerebellar hemisphere.
LDL 38, HbA1C- 7.2
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
PSH: laminectomies at L2, L3, and L4, BL TKA,
SH: resident at [facility], nonsmoker
FH:no FH of strokes
All:JUNIOR Inhibitors
ROS:Constitutional: Negative. Negative for chills, fever and unexpected weight change.
Eyes: Negative. Negative for photophobia, pain and visual disturbance.
Respiratory: Negative for cough, choking and shortness of breath.
Cardiovascular: Negative for chest pain, palpitations and leg swelling.
Endocrine: Negative. Negative for cold intolerance.
Genitourinary: Negative for dysuria, flank pain and urgency.
Musculoskeletal: positive for back pain
Skin: Negative for rash.
Allergic/Immunologic: Negative. Negative for immunocompromised state.
Neurological: positive for chronic R leg numbness and L leg weakness, transient aphasia
General: Well developed. In no acute distress.
Cardio: Regular rate and rhythm without murmur. Extremities are without cyanosis or edema.
Neuro:
Mental Status: Alert, oriented to self, place. Anxious. Able to correctly name all items on NIH cards. No hemineglect
Cranial Nerves: Pupils are equally round and reactive to light. EOMs full. Visual hahn full to confrontation. No ptosis. No nystagmus. V1-V3 intact to light touch and pinprick bilaterally, symmetric. Face symmetric. Mildly impaired hearing
AU. The palate elevated well. SCMs and traps 5/5. Tongue midline. No dysarthria.
Motor: No PD or leg drift
Reflexes: 2+ throughout the upper extremities and knees. 2/2 in AJs. Plantar responses flexor bilaterally.
Sensory: absent vibration at the toes, ankles and knees
Coordination: No dysmetria
Gait: deferred
Assessment and Plan:
I. TIA. Hypertensive emergency
II. Cerebral microangiopathy
III. Severe L4/L5 central canal stenosis with R radiculopathy
IV. Chronic left denny radiata infarct.
V. Moderate C3/C4 DJD
. Axonal sensorimotor peripheral polyneuropathy
-Continue Telemetry monitoring.
-BP goal-normotension
-TTE with bubble studies
-Continue ASA 81 mg QD indefinitely.
-Plavix 75 mg QD for 21 days.
-Lipitor 40 mg QHS.
-HAMZAH/ILR if no events of Telemetry and normal TTE.
-PT.
-DVT prophylaxis.
I personally reviewed all radiology and labs along with past medical records pertinent to current medical problems. Total time spent in patient care is 36 minutes.
Thank you for allowing us to participate in the care of this patient. We will continue to follow. Please do not hesitate to contact us with any questions or concerns.
Objective Data
Vital Signs
Temp Pulse Resp BP Pulse Ox
36.3 C 96 20 210/96 95
02/15/24 07:25 02/15/24 07:25 02/15/24 07:25 02/15/24 07:25 02/15/24 07:25
Lab Results
02/15/24 07:54
PT 14.3 Sec (11.4-14.6) 02/14/24 15:32
INR 1.10 02/14/24 15:32
APTT 32.2 Sec (23.4-35.0) 02/14/24 15:32
Sodium 142 mmol/L (135-145) 02/14/24 15:32
Potassium mmol/L (3.5-5.1) 02/14/24 15:32
BUN 25 mg/dl (7-17) H 02/14/24 15:32
Glucose 129 mg/dl (70-99) H 02/14/24 15:32
Calcium 10.0 mg/dl (8.4-10.2) 02/14/24 15:32
Patient Allergies
JUNIOR Inhibitors Allergy (Verified 02/15/24 04:40)
cough
codeine [Codeine] Allergy (Verified 02/14/24 15:27)
Nausea
Vital Signs and Labs
-
Vital Signs and Labs:
Vital Signs
Temp Pulse Resp BP Pulse Ox
36.3 C 96 20 210/96 95
02/15/24 07:25 02/15/24 07:25 02/15/24 07:25 02/15/24 07:25 02/15/24 07:25
Lab Results
02/15/24 07:54
02/15/24 07:54
PT 14.3 Sec (11.4-14.6) 02/14/24 15:32
INR 1.10 02/14/24 15:32
APTT 32.2 Sec (23.4-35.0) 02/14/24 15:32
Sodium 144 mmol/L (135-145) 02/15/24 07:54
Potassium 4.0 mmol/L (3.5-5.1) 02/15/24 07:54
BUN 19 mg/dl (7-17) H 02/15/24 07:54
Glucose 148 mg/dl (70-99) H 02/15/24 07:54
Calcium 10.1 mg/dl (8.4-10.2) 02/15/24 07:54
LDL Cholesterol, Calc 38 mg/dl 02/15/24 07:54
Medications
-
Medications:
Generic Name Dose Route Start Last Admin
Trade Name Freq PRN Reason Stop Dose Admin
Aspirin 81 mg 02/15/24 08:00
Aspirin 81 Mg (Enteric Coated) Tablet PO 03/14/24 07:59
DAILY MATTHEW
Atorvastatin Calcium 40 mg 02/14/24 20:57 02/14/24 22:02
Atorvastatin (Lipitor) 40 Mg Tablet PO 03/13/24 20:56 40 mg
QPM MATTHEW Administration
Clopidogrel Bisulfate 75 mg 02/15/24 08:00
Clopidogrel 75 Mg Tablet PO 03/07/24 07:59
DAILY MATTHEW
Dextrose 12.5 grams 02/14/24 20:57
Dextrose 50% (0.5 Grams/Ml) 50 Ml Syringe IV 03/13/24 20:56
[id number] PRN
hypoglycemia
Protocol
Famotidine 40 mg 02/14/24 22:00 02/14/24 22:02
Famotidine 40 Mg Tablet PO 03/13/24 21:59 40 mg
HS MATTHEW Administration
Glucagon 1 mg 02/14/24 20:57
Glucagon 1 Mg Vial IM 03/13/24 20:56
PRN PRN
hypoglycemia
Protocol
Insulin Aspart 0 units 02/15/24 07:30
Insulin Aspart Low Resistance 300 Units/3 Ml Pen.Injctr SC 03/14/24 07:29
AC MATTHEW
Protocol
Levothyroxine Sodium 88 mcg 02/15/24 06:00 02/15/24 04:41
Levothyroxine 88 Mcg Tablet PO 03/14/24 05:59 88 mcg
DAILY @ 0600 MATTHEW Administration
Lorazepam 0.5 mg 02/15/24 03:08 02/15/24 03:30
Lorazepam 0.5 Mg Tablet PO 03/14/24 03:07 0.5 mg
NOW PRN Administration
Before MRI
Losartan Potassium 100 mg 02/15/24 09:00
Losartan 100 Mg Tablet PO 03/14/24 08:59
DAILY MATTHEW
Mirabegron 50 mg 02/15/24 08:00
Mirabegron Extended Release 25 Mg Tab (Non Form) PO 03/14/24 07:59
DAILY MATTHEW
Oxycodone/Acetaminophen 1 tablet 02/14/24 20:57
Oxycodone 5 Mg/Apap 325 Mg (Percocet) PO 02/28/24 20:56
Q6HPRN PRN
severe pain
Pantoprazole Sodium 40 mg 02/15/24 08:00
Pantoprazole 40 Mg Delayed Release Tablet PO 03/14/24 07:59
DAILY MATTHEW
Propranolol HCl 120 mg 02/15/24 09:00
Propranolol Extended Release 120 Mg Capsule (24hr) PO 03/14/24 08:59
DAILY MATTHEW
Sodium Chloride 0 flush 02/14/24 21:00
Sodium Chloride 0.9% (Flush) Syringe IV 03/13/24 20:59
PER PROTOCOL MATTHEW
Home Medications
-
Home Medications
acetaminophen 650 mg tablet,extended release 650 mg PO TID Pain 02/14/24
aspirin 81 mg tablet,delayed release 81 mg PO DAILY Blood Clot Prevention/Tx 02/14/24
famotidine 40 mg tablet (Pepcid) 40 mg PO HS Gastrointestinal Issue 02/14/24
levothyroxine 88 mcg tablet (Synthroid) 88 mcg PO DAILY Thyroid 02/14/24
losartan 100 mg tablet 100 mg PO DAILY Blood Pressure 02/14/24
metformin 500 mg tablet 500 mg PO DAILY Diabetes 02/14/24
mirabegron 50 mg tablet,extended release 24 hr (Myrbetriq) 50 mg PO DAILY Urinary Issue 02/14/24
oxycodone-acetaminophen 5 mg-325 mg tablet (Percocet) 1 tab PO Q6HPRN PRN severe pain 02/14/24
pantoprazole 40 mg tablet,delayed release (Protonix) 40 mg PO DAILY Gastrointestinal Issue 02/14/24
propranolol 120 mg capsule,24 hr,extended release 120 mg PO DAILY Heart Disease/Condition 02/14/24
rosuvastatin 40 mg tablet (Crestor) 40 mg PO QPM High Cholesterol 02/14/24
[2024-02-15 09:35] LABS: ALT (SGPT) 25 U/L (0-35); AST (SGOT) 31 U/L (14-36); Albumin 3.8 g/dl (3.5-5.0); Alkaline Phosphatase 73 U/L (38-126); Blood Urea Nitrogen 19 mg/dl (7-17); Calcium 10.1 mg/dl (8.4-10.2); Carbon Dioxide 27 mmol/L (22-30); Chloride 102 mmol/L (98-107); Estimated Creatinine Clearance 45 ml/min; Glucose 148 mg/dl (70-99); HDL Cholesterol 44 mg/dl; LDL Cholesterol, Calculated 38 mg/dl; Sodium 144 mmol/L (135-145); Total Bilirubin 0.9 mg/dl (0.2-1.3); Total Cholesterol 130 mg/dl (50-199); Triglyceride 241 mg/dl (10-149); Very Low Density Lipoprotein 48 mg/dl (0-30); eGFR 50.17
[2024-02-15 09:44] LABS: Glucose - Point of Care 137 mg/dl (70-99)
[2024-02-15] MEDS: NOVOLOG FLEXPEN-LOW RESISTANCE SC ×3 (09:47→17:13)
[2024-02-15] MEDS: ASPIR LOW (ENTERIC COATED) 81 MG PO (09:48)
[2024-02-15] MEDS: MYRBETRIQ EXTENDED RELEASE 50 MG PO (09:48)
[2024-02-15] MEDS: PROTONIX 40 MG PO (09:49)
[2024-02-15] MEDS: PLAVIX 75 MG PO (09:49)
[2024-02-15] MEDS: INDERAL LA 120 MG PO (09:49)
[2024-02-15] MEDS: FLUSH (NSS) 1 FLUSH IV (09:51)
[2024-02-15] MEDS: COZAAR 100 MG PO (09:51)
--- NOTE | 2024-02-15 11:26 | PTOTSP ---
pt currently demonstrates ability to complete simple ADLs, functional transfers, ambulation with supervision to no assistance. no cognitive deficits noted, no overt deficiencies noted regarding functional ability. no acute OT needs identified, will
sign off.
[2024-02-15 12:21] LABS: Vitamin B12 < 159 pg/ml (239-931)
[2024-02-15 12:50] LABS: Glucose - Point of Care 145 mg/dl (70-99)
[2024-02-15] MEDS: PROCARDIA XL (EXTENDED RELEASE) 30 MG PO (13:17)
--- NOTE | 2024-02-15 16:08 | PTCARENOTE ---
Pt AAO x3, FOX well, OOB in room/to BR with walker, jessica well, no c/o weakness/dizziness. NIHSS 0. VSS. Telemetry:NSR with PAC's. On room a ir- pulse ox 98%, no SOB noted. Abd large, soft, jessica PO well, no dysphagia noted. Voids in BR without
difficulty. Resting in bed at present, no c/o. Will continue to monitor.
--- NOTE | 2024-02-15 16:34 | PTOTSP ---
SPEECH THERAPY SWALLOW/SPEECH/LANGUAGE/COGNITIVE COMMUNICATION EVALUATION:
Patient exhibits grossly functional oropharyngeal swallow at this time. Patient remains at risk for aspiration and related complications given cognitive communication impairments secondary to history of CVA, GERD, and noted cervical osteophytes as
noted during prior VSEs. Patient appears to be tolerating current diet without signs of aspiration at this time. Recommend continue Regular texture diet, thin liquids. Medications whole with liquid as best tolerated. Aspiration and Reflux
precautions: Sit upright during meals; Eat slowly and chew food thoroughly; Intersperse sip of liquid after every 3-4 bites of solid; Rest breaks as needed; Reflux precautions including remaining upright for at least 30 minutes after meals; Small
sips/bites; Partial supervision with meals; Monitor for signs of aspiration; D/c oral diet if any decline in mental or respiratory status. Speech therapy to follow at the acute care level to assess diet tolerance, modify as appropriate, and
determine indication for VSE if appropriate.
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
impairments characterized by impairments in the following areas: word finding, processing speed, auditory comprehension, STM, executive functioning skills, attention, and orientation. MOCA version 8.1 was administered. Patient scored 13/30, below
normal range (which is greater than or equal to 26/30). Subscores as follows: Visuospatial/executive functionin/5. Namin/3. Memory/Recall: 0/5 (MIS 5/15). Attention: 2/2. Language: 1/2. Abstraction: 2/2. Orientation: /6. ST services are
recommended at the acute care level and continued upon discharge.
RECOMMEND:
1) Regular solids, thin liquids
2) Medications whole with liquid as best tolerated
3) Aspiration and Reflux precautions: Sit upright during meals; Eat slowly and chew food thoroughly; Intersperse sip of liquid after every 3-4 bites of solid; Rest breaks as needed; Reflux precautions including remaining upright for at least 30
minutes after meals; Small sips/bites; Partial supervision with meals; Monitor for signs of aspiration; D/c oral diet if any decline in mental or respiratory status.
4) ST to follow at the acute care level for speech and swallow therapy. Recommend continued ST services upon discharge.
[2024-02-15 16:54] LABS: Glucose - Point of Care 144 mg/dl (70-99)
--- NOTE | 2024-02-15 17:13 | CM ---
Ashlyn was admitted to [facility] with expressive aphasia; symptoms have resolved.
Patient lives at [facility] and is (I) amb and adls at baseline; drives locally. She has been seen as an outpatient at [facility] for PT services. OP Speech therapy is also recommended at discharge.
DME in home: walker, Rollater, scooter
She has rx plan using [facility] in [place].
Plan: return to [facility] with OP PT and ST recommended
[2024-02-15] MEDS: LIPITOR 40 MG PO (17:55)
[2024-02-15] MEDS: ALDACTONE 12.5 MG PO (17:55)
[2024-02-15 21:15] LABS: Glucose - Point of Care 138 mg/dl (70-99)
[2024-02-15] MEDS: PEPCID 40 MG PO (21:38)
[2024-02-16 03:57] VITALS: BP 161/83
[2024-02-16] MEDS: SYNTHROID 88 MCG PO (05:11)
--- NOTE | 2024-02-16 06:15 | PTCARENOTE ---
Pt got up confused this morning, thinks there were 'kids in the middle of the night who were making noise.', which prevented her from having a good sleep. Pt is oriented to self, place and time. Pt wants to get dressed and leave. At times, states
that she wants to go 'up to her room'. Pt was also incontinent of urine. Pt reoriented, hygiene provided. NIH=0. [employer] RECOR[employer] SPECIALIST (Margarita Garnett) made aware, ordered urinalysis. UA sent. Pt continues to get out of bed. Bed alarm in place. Will continue to
monitor the pt.
[2024-02-16 06:19] LABS: Urine Albumin Trace (Neg - Trace); Urine Bilirubin Negative (Negative); Urine Character Slightly Cloudy (Clear); Urine Color Yellow; Urine Glucose Negative (Negative); Urine Ketone Negative (Negative); Urine Leukocyte 2+ (Negative); Urine Nitrite Negative (Negative); Urine Occult Blood Negative (Negative); Urine Urobilinogen Negative (Neg - 1+)
--- NOTE | 2024-02-16 06:28 | W.PN.UPDATE ---
Update Note
Progress Note Update
Reported by the nursing staff that the patient woke up confused. NIH 0.
MRI was done on 02/15/24 with no evidence of acute infract.
Urinalysis ordered and abnormal result received will start the patient on ceftriaxone.
[2024-02-16 06:30] LABS: Urine Bacteria Many (Negative); Urine White Cell 50-60 /HPF (0-5)
[2024-02-16 06:31] LABS: Urine Red Blood Cell None Seen /HPF (0-2)
[2024-02-16 07:47] LABS: Glucose - Point of Care 169 mg/dl (70-99)
[2024-02-16] MEDS: STERILE WATER FOR INJECTION 10 ML IV (07:57)
[2024-02-16] MEDS: ROCEPHIN 1000 MG IV (07:57)
[2024-02-16 08:30] LABS: Hematocrit 38.1 % (37.0-47.0); Hemoglobin 13.3 g/dL (12.0-16.0); Mean Corp Hgb Conc. 34.9 g/dL (33.0-37.0); Mean Corpuscular Hgb 29.3 pg (27.0-31.0); Mean Corpuscular Volume 83.9 fL (81.0-99.0); Mean Platelet Volume 11.1 fL (7.4-10.4); Platelet Count 285 10^3/uL (130-400); Red Blood Cell Count 4.54 10^6/uL (4.20-5.40); Red Cell Dist. Width 13.2 % (11.5-14.5); White Blood Cell Count 8.6 10^3/uL (4.8-10.8)
[2024-02-16 08:57] LABS: ALT (SGPT) 28 U/L (0-35); AST (SGOT) 34 U/L (14-36); Albumin 4.4 g/dl (3.5-5.0); Alkaline Phosphatase 78 U/L (38-126); Blood Urea Nitrogen 25 mg/dl (7-17); Calcium 10.5 mg/dl (8.4-10.2); Carbon Dioxide 22 mmol/L (22-30); Chloride 103 mmol/L (98-107); Estimated Creatinine Clearance 50 ml/min; Glucose 172 mg/dl (70-99); Potassium 4.2 mmol/L (3.5-5.1); Sodium 142 mmol/L (135-145); Total Protein 6.8 g/dl (6.3-8.2); eGFR 56.25
[2024-02-16] MEDS: ASPIR LOW (ENTERIC COATED) 81 MG PO (09:59)
[2024-02-16] MEDS: PROCARDIA XL (EXTENDED RELEASE) 30 MG PO (09:59)
[2024-02-16] MEDS: MYRBETRIQ EXTENDED RELEASE 50 MG PO (09:59)
[2024-02-16] MEDS: COZAAR 50 MG PO (09:59)
[2024-02-16] MEDS: INDERAL LA 120 MG PO (09:59)
[2024-02-16] MEDS: PLAVIX 75 MG PO (09:59)
[2024-02-16] MEDS: PROTONIX 40 MG PO (10:00)
[2024-02-16] MEDS: ALDACTONE 12.5 MG PO (10:00)
[2024-02-16] MEDS: NOVOLOG FLEXPEN-LOW RESISTANCE 1 UNITS SC ×2 (10:12→17:08)
[2024-02-16 10:27] LABS: Urine Albumin Trace (Neg - Trace); Urine Bilirubin Negative (Negative); Urine Character Slightly Cloudy (Clear); Urine Color Yellow; Urine Glucose Negative (Negative); Urine Ketone Negative (Negative); Urine Leukocyte 1+ (Negative); Urine Nitrite Positive (Negative); Urine Occult Blood Negative (Negative); Urine Urobilinogen Negative (Neg - 1+)
[2024-02-16 10:35] LABS: Urine Squamous Cell 16-20 /LPF (Few)
[2024-02-16 10:36] LABS: Urine Bacteria Many (Negative); Urine White Cell 50-60 /HPF (0-5)
[2024-02-16 11:30] VITALS: BP 161/76
--- NOTE | 2024-02-16 11:30 | PTCARENOTE ---
Pt was mildly confused earlier this morning, AAOx3. Now appearing slightly more confused, thinking that she is in a townhouse. Son at the bedside saying that she is completely different from yesterday. Dr Senior notified. Will be rounding on this
pt soon.
--- NOTE | 2024-02-16 12:07 | W.PN.NEURO.1 ---
Today's Communication / Plan
-
.
Subjective/Objective
Subjective Data
Date of Service: February 16, 2024
Neurology follow-up note
24h events: encephalopathic last night, blood pressure has improved, however remains elevated. Afebrile.
Ms. Dowd reports no complaints including dysuria. he was started on Ceftriaxone today.
Brain MRI�showed no acute infarcts, severe white matter leukoaraiosis in both cerebral hemispheres, innumerable symmetric dilated perivascular spaces throughout the basal ganglia and caudate nuclei bilaterally.
tiny chronic intraparenchymal microhemorrhages in the right frontal lobe, left thalamus, and right cerebellar hemisphere.
LDL 38, HbA1C- 7.2
TTE- Interatrial septum is intact with no evidence of shunting by color flow Doppler.
ua + nitrates, LE
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
PSH: laminectomies at L2, L3, and L4, BL TKA,
SH: resident at [facility], nonsmoker
FH:no FH of strokes
All:JUNIOR Inhibitors
ROS:Constitutional: Negative. Negative for chills, fever and unexpected weight change.
Eyes: Negative. Negative for photophobia, pain and visual disturbance.
Respiratory: Negative for cough, choking and shortness of breath.
Cardiovascular: Negative for chest pain, palpitations and leg swelling.
Endocrine: Negative. Negative for cold intolerance.
Genitourinary: Negative for dysuria, flank pain and urgency.
Musculoskeletal: positive for back pain
Skin: Negative for rash.
Allergic/Immunologic: Negative. Negative for immunocompromised state.
Neurological: positive for chronic R leg numbness and L leg weakness, transient aphasia
General: Well developed. In no acute distress.
Cardio: Regular rate and rhythm without murmur. Extremities are without cyanosis or edema.
Neuro:
Mental Status: Alert, oriented to self, place, month, day, Impaired atention and comprehension. Nonfluent. No hemineglect
Cranial Nerves: Pupils are equally round and reactive to light. EOMs full. Visual hahn full to confrontation. No ptosis. No nystagmus. V1-V3 intact to light touch and pinprick bilaterally, symmetric. Face symmetric. Mildly impaired hearing
AU. The palate elevated well. SCMs and traps 5/5. Tongue midline. No dysarthria.
Coordination: No dysmetria
Gait: deferred
Assessment and Plan:
I. 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
II. Encephalopathy(vascular, infectious)
III. Severe L4/L5 central canal stenosis with R radiculopathy
IV. Chronic left denny radiata infarct.
V. Moderate C3/C4 DJD
. Axonal sensorimotor peripheral polyneuropathy
-Continue Telemetry monitoring.
-BP goal-normotension
-Continue ASA 81 mg QD
-Plavix 75 mg QD for 21 days.
-Lipitor 40 mg QHS.
-OP neuropsychological evaluation
-PT.
-DVT prophylaxis.
-OP neurology follow up in 1-2 weeks
-The case was discussed with patients son.
I personally reviewed all radiology and labs along with past medical records pertinent to current medical problems. Total time spent in patient care is 40 minutes.
Thank you for allowing us to participate in the care of this patient. Please do not hesitate to contact us with any questions or concerns.
Objective Data
Vital Signs
Temp Pulse Resp BP Pulse Ox
36.4 C 78 18 161/76 93
02/16/24 11:30 02/16/24 11:30 02/16/24 11:30 02/16/24 11:30 02/16/24 11:30
Lab Results
02/16/24 07:30
02/16/24 07:30
PT 14.3 Sec (11.4-14.6) 02/14/24 15:32
INR 1.10 02/14/24 15:32
APTT 32.2 Sec (23.4-35.0) 02/14/24 15:32
Sodium 142 mmol/L (135-145) 02/16/24 07:30
Potassium 4.2 mmol/L (3.5-5.1) 02/16/24 07:30
BUN 25 mg/dl (7-17) H 02/16/24 07:30
Glucose 172 mg/dl (70-99) H 02/16/24 07:30
Calcium 10.5 mg/dl (8.4-10.2) H 02/16/24 07:30
LDL Cholesterol, Calc 38 mg/dl 02/15/24 07:54
Vitamin B12 < 159 pg/ml (239-931) L 02/15/24 09:53
Patient Allergies
JUNIOR Inhibitors Allergy (Verified 02/15/24 04:40)
cough
codeine [Codeine] Allergy (Verified 02/14/24 15:27)
Nausea
Vital Signs and Labs
-
Vital Signs and Labs:
Vital Signs
Temp Pulse Resp BP Pulse Ox
36.4 C 78 18 161/76 93
02/16/24 11:30 02/16/24 11:30 02/16/24 11:30 02/16/24 11:30 02/16/24 11:30
Lab Results
02/16/24 07:30
02/16/24 07:30
PT 14.3 Sec (11.4-14.6) 02/14/24 15:32
INR 1.10 02/14/24 15:32
APTT 32.2 Sec (23.4-35.0) 02/14/24 15:32
Sodium 142 mmol/L (135-145) 02/16/24 07:30
Potassium 4.2 mmol/L (3.5-5.1) 02/16/24 07:30
BUN 25 mg/dl (7-17) H 02/16/24 07:30
Glucose 172 mg/dl (70-99) H 02/16/24 07:30
Calcium 10.5 mg/dl (8.4-10.2) H 02/16/24 07:30
LDL Cholesterol, Calc 38 mg/dl 02/15/24 07:54
Vitamin B12 < 159 pg/ml (239-931) L 02/15/24 09:53
Medications
-
Medications:
Generic Name Dose Route Start Last Admin
Trade Name Freq PRN Reason Stop Dose Admin
Aspirin 81 mg 02/15/24 08:00 02/16/24 09:59
Aspirin 81 Mg (Enteric Coated) Tablet PO 03/14/24 07:59 81 mg
DAILY MATTHEW Administration
Atorvastatin Calcium 40 mg 02/14/24 20:57 02/15/24 17:55
Atorvastatin (Lipitor) 40 Mg Tablet PO 03/13/24 20:56 40 mg
QPM MATTHEW Administration
Ceftriaxone Sodium 1,000 mg 02/16/24 08:00 02/16/24 07:57
Ceftriaxone 1000 Mg / 10 Ml Vial IV 1,000 mg
Q24H MATTHEW Administration
Clopidogrel Bisulfate 75 mg 02/15/24 08:00 02/16/24 09:59
Clopidogrel 75 Mg Tablet PO 03/07/24 07:59 75 mg
DAILY MATTHEW Administration
Cyanocobalamin 1,000 mcg 02/17/24 08:00
Cyanocobalamin (1000 Mcg/Ml) 1 Ml Vial IM 03/16/24 07:59
DAILY MATTHEW
Dextrose 12.5 grams 02/14/24 20:57
Dextrose 50% (0.5 Grams/Ml) 50 Ml Syringe IV 03/13/24 20:56
[id number] PRN
hypoglycemia
Protocol
Famotidine 40 mg 02/14/24 22:00 02/15/24 21:38
Famotidine 40 Mg Tablet PO 03/13/24 21:59 40 mg
HS MATTHEW Administration
Glucagon 1 mg 02/14/24 20:57
Glucagon 1 Mg Vial IM 03/13/24 20:56
PRN PRN
hypoglycemia
Protocol
Insulin Aspart 0 units 02/15/24 07:30 02/16/24 10:12
Insulin Aspart Low Resistance 300 Units/3 Ml Pen.Injctr SC 03/14/24 07:29 1 units
AC MATTHEW Administration
Protocol
Levothyroxine Sodium 88 mcg 02/15/24 06:00 02/16/24 05:11
Levothyroxine 88 Mcg Tablet PO 03/14/24 05:59 88 mcg
DAILY @ 0600 MATTHEW Administration
Lorazepam 0.5 mg 02/15/24 03:08 02/15/24 03:30
Lorazepam 0.5 Mg Tablet PO 03/14/24 03:07 0.5 mg
NOW PRN Administration
Before MRI
Losartan Potassium 50 mg 02/16/24 08:00 02/16/24 09:59
Losartan 50 Mg Tablet PO 03/15/24 07:59 50 mg
DAILY MATTHEW Administration
Mirabegron 50 mg 02/15/24 08:00 02/16/24 09:59
Mirabegron Extended Release 25 Mg Tab (Non Form) PO 03/14/24 07:59 50 mg
DAILY MATTHEW Administration
Nifedipine 30 mg 02/15/24 12:00 02/16/24 09:59
Nifedipine 30 Mg Extended Release Tablet PO 03/14/24 11:59 30 mg
DAILY MATTHEW Administration
Oxycodone/Acetaminophen 1 tablet 02/14/24 20:57
Oxycodone 5 Mg/Apap 325 Mg (Percocet) PO 02/28/24 20:56
Q6HPRN PRN
severe pain
Pantoprazole Sodium 40 mg 02/15/24 08:00 02/16/24 10:00
Pantoprazole 40 Mg Delayed Release Tablet PO 03/14/24 07:59 40 mg
DAILY MATTHEW Administration
Propranolol HCl 120 mg 02/15/24 09:00 02/16/24 09:59
Propranolol Extended Release 120 Mg Capsule (24hr) PO 03/14/24 08:59 120 mg
DAILY MATTHEW Administration
Sodium Chloride 0 flush 02/14/24 21:00 02/15/24 09:51
Sodium Chloride 0.9% (Flush) Syringe IV 03/13/24 20:59 1 flush
PER PROTOCOL MATTHEW Administration
Spironolactone 12.5 mg 02/15/24 17:00 02/16/24 10:00
Spironolactone 12.5 Mg Dose (1/2 Of 25 Mg Tablet) PO 03/14/24 16:59 12.5 mg
DAILY MATTHEW Administration
Sterile Water 10 ml 02/16/24 08:00 02/16/24 07:57
Sterile Water For Injection 10 Ml Vial IV 03/15/24 07:59 10 ml
Q24H MATTHEW Administration
Home Medications
-
Home Medications
acetaminophen 650 mg tablet,extended release 650 mg PO TID Pain 02/14/24
aspirin 81 mg tablet,delayed release 81 mg PO DAILY Blood Clot Prevention/Tx 02/14/24
famotidine 40 mg tablet (Pepcid) 40 mg PO HS Gastrointestinal Issue 02/14/24
levothyroxine 88 mcg tablet (Synthroid) 88 mcg PO DAILY Thyroid 02/14/24
losartan 100 mg tablet 100 mg PO DAILY Blood Pressure 02/14/24
metformin 500 mg tablet 500 mg PO DAILY Diabetes 02/14/24
mirabegron 50 mg tablet,extended release 24 hr (Myrbetriq) 50 mg PO DAILY Urinary Issue 02/14/24
oxycodone-acetaminophen 5 mg-325 mg tablet (Percocet) 1 tab PO Q6HPRN PRN severe pain 02/14/24
pantoprazole 40 mg tablet,delayed release (Protonix) 40 mg PO DAILY Gastrointestinal Issue 02/14/24
propranolol 120 mg capsule,24 hr,extended release 120 mg PO DAILY Heart Disease/Condition 02/14/24
rosuvastatin 40 mg tablet (Crestor) 40 mg PO QPM High Cholesterol 02/14/24
[2024-02-16 13:06] LABS: Glucose - Point of Care 120 mg/dl (70-99)
[2024-02-16] MEDS: NOVOLOG FLEXPEN-LOW RESISTANCE SC (13:07)
[2024-02-16] MEDS: CYANOCOBALAMIN 1000 MCG IM (13:29)
--- NOTE | 2024-02-16 14:43 | W.PN.HOSP.TC ---
Today's Communication/Plan
-
watch with IV AB
Assessment / Plan
Assessment / Plan
83-year-old female admitted with difficulty expressing words and also remembering how to do things, and also unsteady gait.
CT head/CTA-no large vessel occlusion. Moderate subcortical and periventricular white matter hypodensities. Chronic lacunar infarct in the left denny radiator. 50% stenosis of the proximal right ICA
MRI of the brain-no acute infarct. 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 Innumerable symmetric dilated perivascular spaces throughout BG and caudate nuclei bilaterally. Tiny chronic intraparenchymal microhemorrhages in the right
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 Moderate discogenic DJD C3-C4 with small central disc herniation through mild spinal cord compression and central canal stenosis.
Seen earlier, late documentation.
Confused since 3 am
CVS: S1-S2 normal
Chest: CTA B/L
Abdomen: Soft, NT / Bowel sounds present
Extremities: No edema, normal pulses
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 Does not know that she is. Knows that this is February
# TME
Treat for UTI
Discussed with the patient's son that she needs outpatient cognitive evaluation
# UTI-continue ceftriaxone and wait for cultures
# Expressive aphasia, ataxia
Admitted for stroke workup
History of TIA
Continue aspirin and Plavix as ordered
Continue statin
Echo transthoracic-normal LV systolic function. EF 60 to 65%. No regional wall motion abnormalities. Mild concentric LVH. Mitral inflow pattern suggestive of abnormal relaxation. Normal RV size and function.
Neurology consulted and evaluated
# Hypertensive emergency and poorly controlled hypertension
Possible TIA continue aspirin. Plavix for 21 days
Continue statin
Continue propranolol and losartan
Nifedipine 30 mg
Losartan dose decreased and we added Aldactone 12.5 mg daily. Blood pressure is much better now.
# Rumzgnou-Gfea-Janfi and sliding scale coverage
HbA1C 7.2
Restart Metformin
# Hyperlipidemia-continue statin
# Hypothyroidism-continue Synthroid 88 mcg daily
# GERD-continue Pepcid and Protonix
# IBS
# Chronic back pain with laminectomy/Spinal stenosis/osteoarthritis/neuropathy/L4-5 central canal stenosis with right radiculopathy/discogenic DJD [id number] Percocet. Chronic opiate dependence for pain control
# Chronic ambulatory dysfunction with frequent falls-uses a walker at home and motorized scooter outside. She attends outpatient PT
# Obesity per BMI
# DVT prophylaxis-Lovenox
# Full code
Discussed with son at bedside earlier today
Discussed with nursing
Discussed with neurology
Anticipated Discharge: 24 - 48 hours
Subjective/Interval History
-
Date of Service: February 16, 2024
Objective Data
-
Labs:
Laboratory Results
02/16/24
07:30
WBC 8.6
Hgb 13.3
Hct 38.1
Plt Count 285 D
Sodium 142
Potassium 4.2
Chloride 103
Carbon Dioxide 22
BUN 25 H
Creatinine 1.0
Glucose 172 H
Calcium 10.5 H
Total Bilirubin 1.0
AST 34
ALT 28
Alkaline Phosphatase 78
Vital Signs:
Vital Signs
Temp Pulse Resp BP Pulse Ox
97.6 F 78 18 161/76 93
02/16/24 11:30 02/16/24 11:30 02/16/24 11:30 02/16/24 11:30 02/16/24 11:30
I&O
02/15/24 02/16/24 02/17/24
06:59 06:59 06:59
Intake Total 1020 / 1020
Balance 1020 / 1020
[2024-02-16 15:10] VITALS: BP 156/67
[2024-02-16 16:45] LABS: Glucose - Point of Care 166 mg/dl (70-99)
[2024-02-16] MEDS: LIPITOR 40 MG PO (17:08)
[2024-02-16] MEDS: SEROQUEL 12.5 MG PO (18:35)
[2024-02-16 19:10] VITALS: BP 122/72
[2024-02-16] MEDS: PEPCID 40 MG PO (21:21)
[2024-02-16 21:27] LABS: Glucose - Point of Care 127 mg/dl (70-99)
[2024-02-16 23:17] VITALS: BP 151/83
[2024-02-17 03:27] VITALS: BP 128/68
[2024-02-17] MEDS: SYNTHROID 88 MCG PO (05:08)
[2024-02-17 07:15] VITALS: BP 126/87
[2024-02-17 08:07] LABS: Glucose - Point of Care 130 mg/dl (70-99)
[2024-02-17] MEDS: NOVOLOG FLEXPEN-LOW RESISTANCE SC ×2 (08:31→16:42)
[2024-02-17] MEDS: ROCEPHIN 1000 MG IV (08:33)
[2024-02-17] MEDS: STERILE WATER FOR INJECTION 10 ML IV (08:33)
[2024-02-17] MEDS: PROTONIX 40 MG PO (08:35)
[2024-02-17] MEDS: COZAAR 50 MG PO (08:35)
[2024-02-17] MEDS: PROCARDIA XL (EXTENDED RELEASE) 30 MG PO (08:35)
[2024-02-17] MEDS: CYANOCOBALAMIN 1000 MCG IM (08:35)
[2024-02-17] MEDS: MYRBETRIQ EXTENDED RELEASE 50 MG PO (08:35)
[2024-02-17] MEDS: ASPIR LOW (ENTERIC COATED) 81 MG PO (08:35)
[2024-02-17] MEDS: PLAVIX 75 MG PO (08:35)
[2024-02-17] MEDS: INDERAL LA 120 MG PO (08:36)
[2024-02-17] MEDS: ALDACTONE 12.5 MG PO (08:36)
[2024-02-17 09:26] LABS: Blood Urea Nitrogen 22 mg/dl (7-17); Calcium 10.2 mg/dl (8.4-10.2); Carbon Dioxide 26 mmol/L (22-30); Chloride 103 mmol/L (98-107); Estimated Creatinine Clearance 45 ml/min; Glucose 138 mg/dl (70-99); Sodium 142 mmol/L (135-145); eGFR 50.17
[2024-02-17 11:19] VITALS: BP 147/63
[2024-02-17 11:59] LABS: Glucose - Point of Care 185 mg/dl (70-99)
[2024-02-17] MEDS: NOVOLOG FLEXPEN-LOW RESISTANCE 1 UNITS SC (12:05)
[2024-02-17 15:41] VITALS: BP 148/64
--- NOTE | 2024-02-17 15:50 | CS.PSYCHR ---
Consult Summary - Psychiatry
-
Pt is an 83 yo female who presented with disorientation and transient speech difficulty. This occurred 02/14/24 when pt was leaving her weekly PT, had trouble remembering how to start her motorized scooter, friend reported pt had difficulty with
expressive speech. Pt seen today resting calmly in bed, alert and oriented. Pt states she has been cleared of a possible stoke. Her blood thinner and Insulin regimen are being adjusted. Pt denies feeling anxious. She reports she takes Ativan prn
for MRI studies. Brain MRI shows significant vascular dz. Pt is being treated for a UTI. Pt was given Seroquel 12.5 mg yesterday evening for confusion, mild agitation.
PMH: CVA left denny radiata, Chronic back pain s/p laminectomy x 4,Spinal stenosis, Neuropathy, HTN, HLD, DM2, Hypothyroidism, Glaucoma, Mild aortic insufficiency, GERD, IBS, Frequent UTIs, OA, Chronic ambulatory dysfunction, Frequent falls.
Psych Hx: denied
MSE: alert, oriented, calm, cooperative. Speech coherent, fluent. Thought goal-directed. Mood stable, affect appropriate. No agitation, no signs of psychosis. Insight intact
Imp: TME, improving
Rec: Ativan prn
will follow peripherally
[2024-02-17 16:40] LABS: Glucose - Point of Care 142 mg/dl (70-99)
[2024-02-17] MEDS: LIPITOR 40 MG PO (16:59)
--- NOTE | 2024-02-17 16:59 | W.PN.HOSP.TC ---
Today's Communication/Plan
-
Await urine CX
Psyche eval
OOB to chair
Assessment / Plan
Assessment / Plan
83-year-old female admitted with difficulty expressing words and also remembering how to do things, and also unsteady gait.
CT head/CTA-no large vessel occlusion. Moderate subcortical and periventricular white matter hypodensities. Chronic lacunar infarct in the left denny radiator. 50% stenosis of the proximal right ICA
MRI of the brain-no acute infarct. 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 Innumerable symmetric dilated perivascular spaces throughout BG and caudate nuclei bilaterally. Tiny chronic intraparenchymal microhemorrhages in the right
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 Moderate discogenic DJD C3-C4 with small central disc herniation through mild spinal cord compression and central canal stenosis.
Seen earlier, late documentation.
CVS: S1-S2 normal
Chest: CTA B/L
Abdomen: Soft, NT / Bowel sounds present
Extremities: No edema, normal pulses
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
# TME
Improving
Treat for UTI
Discussed with the patient's son that she needs outpatient cognitive evaluation
# UTI-continue ceftriaxone and wait for cultures
# Expressive aphasia, ataxia
Admitted for stroke workup
History of TIA
Continue aspirin and Plavix as ordered
Continue statin
Echo transthoracic-normal LV systolic function. EF 60 to 65%. No regional wall motion abnormalities. Mild concentric LVH. Mitral inflow pattern suggestive of abnormal relaxation. Normal RV size and function.
Neurology consulted and evaluated
# Hypertensive emergency and poorly controlled hypertension
Possible TIA continue aspirin. Plavix for 21 days
Continue statin
Continue propranolol and losartan 50 mg daily instead of 100 mg daily
Continue nifedipine 30 mg
Losartan dose decreased 50 mg and we added Aldactone 12.5 mg daily. Blood pressure is much better now.
# Niykbfgw-Jmlu-Iftar and sliding scale coverage
HbA1C 7.2
Continue metformin
# CKD stage 2
# Hyperlipidemia-continue statin
# Hypothyroidism-continue Synthroid 88 mcg daily
# GERD-continue Pepcid and Protonix
# IBS
# Chronic back pain with laminectomy/Spinal stenosis/osteoarthritis/neuropathy/L4-5 central canal stenosis with right radiculopathy/discogenic DJD [id number] Percocet. Chronic opiate dependence for pain control
# Chronic ambulatory dysfunction with frequent falls-uses a walker at home and motorized scooter outside. She attends outpatient PT
# Obesity per BMI
# DVT prophylaxis-Lovenox
# Full code
Discussed with son 02/16/24
Discussed with nursing
Anticipated Discharge: Within 24 hours
Subjective/Interval History
-
Date of Service: February 17, 2024
Objective Data
-
Labs:
Laboratory Results
02/17/24
08:07
Sodium 142
Potassium 4.0
Chloride 103
Carbon Dioxide 26
BUN 22 H
Creatinine 1.1 H
Glucose 138 H
Calcium 10.2
Vital Signs:
Vital Signs
Temp Pulse Resp BP Pulse Ox
97.6 F 71 18 148/64 94
02/17/24 15:41 02/17/24 15:41 02/17/24 15:41 02/17/24 15:41 02/17/24 15:41
I&O
02/16/24 02/17/24 02/18/24
06:59 06:59 06:59
Intake Total 1020 / 1020 480 / 480 800 / 800
Balance 1020 / 1020 480 / 480 800 / 800
[2024-02-17 19:00] VITALS: BP 132/72
[2024-02-17] MEDS: PEPCID 40 MG PO (21:27)
[2024-02-17 21:47] LABS: Glucose - Point of Care 153 mg/dl (70-99)
[2024-02-17 23:00] VITALS: BP 143/54
[2024-02-18 03:00] VITALS: BP 151/64
[2024-02-18] MEDS: SYNTHROID 88 MCG PO (04:58)
--- NOTE | 2024-02-18 07:38 | W.PN.HOSP.TC ---
Addendum entered and electronically signed by Umang Leigh MD 02/18/24 13:26:
I saw and evaluated the patient. I reviewed the resident�s note and agree with findings and plan as documented in the resident�s note.
Patient without acute complaints
Gen: NAD, AAOx3.
Eyes: EOMI, PERRLA, no scleral icterus.
Neck: supple.
CV: RRR, +S1/S2, no m/r/g.
Resp: CTAB, no rales, wheezes, or rhonchi.
Abd: +BS, soft, NT, ND
Skin: No rashes.
Neuro: CN 2-12 intact, non-focal.
Psych: Normal mood and affect.
Acute TIA and acute hypertensive encephalopathy due to hypertensive emergency, POA:
-Antihypertensive medications have been adjusted and blood pressures have improved
-cont Procardia XL, Aldactone, Cozaar, propranolol
-Appreciate neurology
-Continue Plavix for 21 days total
-Continue aspirin and statin
Asymptomatic bacteriuria:
-Patient without leukocytosis or fever, urine culture with 60,000 CFU of mixed chantale, likely contaminated urine sample
-Urinary tract infection has been ruled out at this time
-Regardless, patient received 3 days of Rocephin
Obesity due to excess calories
Medically cleared for discharge. Case management aware.
Original Note:
Today's Communication/Plan
-
-Follow up with Psych team
-Plan fro discharge
-Follow up BP
Assessment / Plan
Assessment / Plan
Impression : The patient is a 83 year old female who has PMH of CVA (TIA), Chronic back pain s/p laminectomy x 4, Neuropathy, HTN, HLD, DM2, Hypothyroidism,Glaucoma,Mild aortic insufficiency,Spinal stenosis,GERD,IBS,Stress incontinence urine,
Frequent UTIs, OA,Chronic ambulatory dysfunction presented to ER complaining from difficulty with her speeching on 02/14/24. She reported she had difficulty expressing what she wanted to say according to her friend. She reported having difficulty
with finding the [id number] female admitted with difficulty expressing words and also remembering how to do things, and also unsteady gait. The patient was admitted for stroke evaluation. Her CT, brain MRI, echo was obtained which were
unremarkable for stroke. She was given other blood pressure medication ( Nifedipine and Aldactone) to control her BP. She had some confusion and agitation on 02/15 evening and was given Seroquel 12.5 mg and was seen by a psychiatrist on 02.16 due
address her agitation. She will be follow up by psych team with PRN Ativan.
# TME
-CT head/CTA:no large vessel occlusion Moderate subcortical and periventricular white matter hypodensities. Chronic lacunar infarct in the left denny radiator. 50% stenosis of the proximal right ICA
-MRI of the brain-no acute infarct. 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 Innumerable symmetric dilated perivascular spaces throughout BG and caudate nuclei bilaterally. Tiny chronic intraparenchymal microhemorrhages in the right
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 Moderate discogenic DJD C3-C4 with small central disc herniation through mild spinal cord compression and central canal stenosis.
-Improving
-Discussed with the patient's son that she needs outpatient cognitive evaluation
# Expressive aphasia, ataxia
-Admitted for stroke workup
-History of TIA
-Continue aspirin and Plavix as ordered
-Continue statin
-Echo transthoracic-normal LV systolic function. EF 60 to 65%. No regional wall motion abnormalities. Mild concentric LVH. Mitral inflow pattern suggestive of abnormal relaxation. Normal RV size and function.
- Appreciate Neurology cons and follow up
OP neuropsychological evaluation
OP neurology follow up in 1-2 weeks
# UTI
-continue ceftriaxone
-Urine culture: Mixed chantale present: Probable contamination
-WBC: 7.4 on , No fever spikes
# Hypertensive emergency and poorly controlled hypertension
-Possible TIA continue aspirin. Plavix for 21 days
-Continue statin
-Continue propranolol and losartan 50 mg daily instead of 100 mg daily
-Continue nifedipine 30 mg
-Losartan dose decreased 50 mg and we added Aldactone 12.5 mg daily. Blood pressure is much better now.
# Diabetes]
-Accu-Cheks and sliding scale coverage
-HbA1C 7.2
-Continue metformin
# CKD stage 2:
-Cr: 1.1 (likely her baseline)
# Hyperlipidemia-continue statin
# Hypothyroidism-continue Synthroid 88 mcg daily
# GERD-continue Pepcid and Protonix
# IBS
# Chronic back pain with laminectomy/Spinal stenosis/osteoarthritis/neuropathy/L4-5 central canal stenosis with right radiculopathy/discogenic DJD [id number]-[id number] Percocet. Chronic opiate dependence for pain control
# Chronic ambulatory dysfunction with frequent falls-uses a walker at home and motorized scooter outside. She attends outpatient PT
# Obesity per BMI
# DVT prophylaxis-Lovenox
# Full code
Anticipated Discharge: 24 - 48 hours
Subjective/Interval History
-
Date of Service: February 18, 2024
Patient was seen in her bed reports she feels better and she does not remember if she had any confusion during her hospitalization. Reports she did not have any difficulty with her speeching again. Denied any symptoms like chest pain, abdominal
pain, dysuria, nausea. Endorsed feeling same weakness on her legs due her chronic spinal stenosis.
Objective Data
-
Labs:
Laboratory Results
02/18/24
06:00
WBC Pending
Hgb Pending
Hct Pending
Plt Count Pending
Sodium Pending
Potassium Pending
Chloride Pending
Carbon Dioxide Pending
BUN Pending
Creatinine Pending
Glucose Pending
Calcium Pending
Vital Signs:
Vital Signs
Temp Pulse Resp BP Pulse Ox
98.4 F 81 18 151/64 94
02/18/24 03:00 02/18/24 03:00 02/18/24 03:00 02/18/24 03:00 02/18/24 03:00
I&O
02/17/24 02/18/24 02/19/24
06:59 06:59 06:59
Intake Total 480 / 480 1760 / 1760
Balance 480 / 480 1760 / 1760
Review of Systems
-
EENT: Reports No Symptoms Reported
Respiratory: Reports No Symptoms
Cardiac: Reports No Symptoms
Abdomen/GI: Reports No Symptoms
Genitourinary: Reports No Symptoms
Musculoskeletal: Reports Other (See HPI )
Skin: Reports No Symptoms
Neuro: Reports Other (See HPI )
Physical Exam
-
General: Appears Chronically Ill and Obese
HEENT: Normocephalic and Atraumatic
Respiratory: Clear to Auscultation
Cardiac: Regular Rhythm, S1/S2 and Murmur
GI: Soft and Nontender
Musculoskeletal: No Clubbing, No Cyanosis, No Edema and Other (Bilateral chronic lowe extremity weakness ( not new onset-no change))
Skin: Warm
Neuro: Awake, Alert, Oriented, AO x 3 and Other (No dysarthria )
[2024-02-18 08:12] LABS: Glucose - Point of Care 144 mg/dl (70-99)
[2024-02-18 08:18] VITALS: BP 169/75
[2024-02-18] MEDS: NOVOLOG FLEXPEN-LOW RESISTANCE SC (08:22)
[2024-02-18] MEDS: PLAVIX 75 MG PO (08:23)
[2024-02-18] MEDS: PROCARDIA XL (EXTENDED RELEASE) 30 MG PO (08:23)
[2024-02-18] MEDS: MYRBETRIQ EXTENDED RELEASE 50 MG PO (08:23)
[2024-02-18] MEDS: INDERAL LA 120 MG PO (08:23)
[2024-02-18] MEDS: PROTONIX 40 MG PO (08:23)
[2024-02-18] MEDS: ASPIR LOW (ENTERIC COATED) 81 MG PO (08:23)
[2024-02-18] MEDS: ALDACTONE 12.5 MG PO (08:23)
[2024-02-18] MEDS: CYANOCOBALAMIN 1000 MCG IM (08:24)
[2024-02-18] MEDS: COZAAR 50 MG PO (08:24)
[2024-02-18] MEDS: FLUSH (NSS) 1 FLUSH IV (08:25)
[2024-02-18] MEDS: ROCEPHIN 1000 MG IV (08:25)
[2024-02-18] MEDS: STERILE WATER FOR INJECTION 10 ML IV (08:25)
[2024-02-18 08:51] LABS: Hematocrit 39.9 % (37.0-47.0); Hemoglobin 13.5 g/dL (12.0-16.0); Mean Corp Hgb Conc. 33.8 g/dL (33.0-37.0); Mean Corpuscular Hgb 29.1 pg (27.0-31.0); Mean Platelet Volume 10.6 fL (7.4-10.4); Platelet Count 266 10^3/uL (130-400); Red Blood Cell Count 4.64 10^6/uL (4.20-5.40); Red Cell Dist. Width 13.6 % (11.5-14.5); White Blood Cell Count 7.4 10^3/uL (4.8-10.8)
[2024-02-18 09:19] LABS: Blood Urea Nitrogen 25 mg/dl (7-17); Calcium 10.6 mg/dl (8.4-10.2); Carbon Dioxide 24 mmol/L (22-30); Chloride 103 mmol/L (98-107); Estimated Creatinine Clearance 45 ml/min; Glucose 175 mg/dl (70-99); Potassium 4.1 mmol/L (3.5-5.1); Sodium 140 mmol/L (135-145); eGFR 50.17
[2024-02-18 11:45] VITALS: BP 131/56
--- NOTE | 2024-02-18 12:03 | CM ---
CM notified that family is requesting transfer to SNF at [facility]. CM reviewed PT/OT/ST notes; last seen on 02/15/2024 with PT and OT recommendation for continued OP therapy. Pt and family have concerns that Ashlyn is not strong enough to return to
her apartment at discharge.
CM requested updated PT/OT/ST notes to determine if SNF is appropriate level of care as of today. OT has signed off; will need a new order for OT services. notified of same.
Plan: Await updated therapy notes and will pursue SNF authorization if needed. Pt and daughter updated on current plan.
[2024-02-18 12:13] LABS: Glucose - Point of Care 151 mg/dl (70-99)
--- NOTE | 2024-02-18 12:43 | W.DCSUMMARY ---
Addendum entered and electronically signed by Umang Leigh MD 02/18/24 16:11:
Read, reviewed, and agree. See same day progress note for additional details.
Total time spent on d/c = 32 min. This included today's physical exam, progress note, review of laboratory and diagnostic data, preparation of discharge documents and prescriptions, and discussions about the pt's hospital course and discharge plan
with the patient and other rn medical inpatient services involved in the patient's care.
Original Note:
Discharge Summary
Discharge Data
Date of Admission: 02/14/24
Date of Discharge: 02/18/24
-
Pending Results: No
Additional Pending Results:
Discharging Physician : Maximilian Leigh MD
Principal Discharge diagnosis : Transient dysphasia, Poorly controlled hypertension
Chronic Discharge diagnosis : CVA (TIA), Spinal stenosis, Chronic back pain s/p laminectomy x 4, Neuropathy, Chronic ambulatory dysfunction, Diabetes, High cholesterol, Hypothyroidism, Glaucoma,Mild aortic insufficiency,GERD,IBS, Stress
incontinence urine, Frequent UTIs, OA.
Hospital Course : The patient is a 83 year old female who presented to ER complaining from difficulty with her speeching on 02/14/24. She reported she had difficulty expressing what she wanted to say according to her friend. She reported having
difficulty with finding the words and also remembering how to do things, and also unsteady gait. The patient was admitted for stroke evaluation. Her head CT, brain MRI, echo was obtained which were unremarkable for stroke. She was started on Plavix
and planned to be given 21 days in total with Aspirin. She was started other blood pressure medications ( Nifedipine and Aldactone) to control her BP . Her previous medication for BP including losartan 100 mg decreased to 50 mg daily to adjust
her BP. She had some confusion and agitation on 02/15 evening and was given Seroquel 12.5 mg and was seen by a psychiatrist on 02.16 due address her agitation and was recommended PRN Ativan. Additionally, the patient had an abnormal urinalysis
result and was started on ceftriaxone 3 days ago.
#Problem 1 Transient dysphasia: It was resolved following the hospital admission. Her head CT, brain MRI, echo was obtained which were unremarkable for stroke. Neurology recommended to continue ASA 81 mg QD and start Plavix 75 mg QD for 21 days and
OP neuropsychological evaluation.
#Problem 2 HTN: Her BP was not able to manage with her previous medication regimen. She was given other blood pressure medications ( Nifedipine and Aldactone) to control her BP and her losartan 100 mg decreased to 50 mg daily and continued to
propranolol 120 mg daily
#Problem3 UTI:She was started on ceftriaxone and received 3 days of cure. Denies any burning or urgency.
Important imaging findings :
CT HEAD/NECK ANG STROKE ALERT 02/14/24
IMPRESSION:
CT Brain: No acute intracranial process. Specifically, no evidence of acute hemorrhage. Sequelae of moderate small vessel ischemic disease with mild diffuse atrophy.
ASPECTS: 10
CTA Head: No large vessel occlusion. Atherosclerotic calcifications of the bilateral petrous and cavernous segments of the ICAs with resultant multifocal mild stenosis.
CTA Neck: Atherosclerotic calcifications of the bilateral carotid bifurcations, worse on the right where there is resultant approximately 50% stenosis of the proximal right ICA by NASCET criteria. Mild stenosis of the left V4 segment of the
vertebral artery secondary to calcified atherosclerotic plaque.
Multinodular goiter with retrosternal extension and external compression on the upper thoracic trachea with resultant moderate narrowing.
Brain MRI 02/15/24
IMPRESSION:
1. No MRI evidence for acute infarct.
2. Severe white matter leukoaraiosis in both cerebral hemispheres.
3. Innumerable symmetric dilated perivascular spaces throughout the basal ganglia and caudate nuclei bilaterally.
4. 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
5. Moderate discogenic degenerative disease at C3/C4 with a small central disc herniation causing mild spinal cord compression and central canal stenosis.
ECHO 02/15/24
CONCLUSIONS
Normal left ventricular systolic function. Estimated LVEF 60 to 65%. No
regional wall motion abnormalities.
Mild concentric LV hypertrophy. Mitral inflow pattern suggestive of abnormal
relaxation.
Normal right ventricular size and function.
No significant valvular disease.
Discharge Plan
-
Patient Disposition: Home with Home Care
Discharge Diagnosis/Procedures: Transient Dysphasia
Poorly controlled hypertension
Diabetes
High cholesterol
Hypothyroidism
GERD
Chronic back pain
Ambulatory dysfunction
Diet: 2 Gram Sodium and Diabetic, Carb Controlled
Activity: With assistance
Driving Restrictions: No driving
Other Services: PT
Activity Restrictions/Additional Instructions:
Weight loss advised. Continue with outpatient PT OT
Referrals:
Landy Sosa MD [Active] -
(Follow up in 1-2 weeks upon discharge
OP neuropsychological evaluation was recommended )
NONE,* [Family Provider] -
Prescriptions:
New
clopidogrel 75 mg Tablet
75 mg PO DAILY 17 Days Qty: 17 0RF
nifedipine 30 mg Tablet Extended Release
30 mg PO DAILY 30 Days Qty: 30 0RF
spironolactone 25 mg Tablet
12.5 mg PO DAILY 30 Days Qty: 15 0RF
losartan 50 mg Tablet
50 mg PO DAILY 30 Days Qty: 30 0RF
Continued
metformin 500 mg Tablet
500 mg PO DAILY
famotidine [Pepcid] 40 mg Tablet
40 mg PO HS
aspirin 81 mg Tablet,Delayed Release (Dr/Ec)
81 mg PO DAILY
levothyroxine [Synthroid] 88 mcg Tablet
88 mcg PO DAILY
pantoprazole [Protonix] 40 mg Tablet,Delayed Release (Dr/Ec)
40 mg PO DAILY
rosuvastatin [Crestor] 40 mg Tablet
40 mg PO QPM
mirabegron [Myrbetriq] 50 mg Tablet Extended Release 24 Hr
50 mg PO DAILY
acetaminophen [Tylenol Extended Release] 650 mg Tablet Extended Release
650 mg PO TID
oxycodone-acetaminophen [Percocet] 5-325 mg Tablet
1 tab PO Q6HPRN PRN (Reason: severe pain)
propranolol 120 mg Capsule,Extended Release 24hr
120 mg PO DAILY
Discontinued
losartan 100 mg Tablet
100 mg PO DAILY
Discharge Date and Time
Print Language: TELUGU
[2024-02-18] MEDS: NOVOLOG FLEXPEN-LOW RESISTANCE 1 UNITS SC ×2 (12:53→17:56)
[2024-02-18 13:23] VITALS: BP 146/65; PULSE 77; O2SAT 96
[2024-02-18 16:15] VITALS: BP 151/74
--- NOTE | 2024-02-18 16:20 | PTCARENOTE ---
Pt AAO x3, sl forgetful at times; pleasant and cooperative. FOX; OOB to chair; ambulates to BR with assist x1/walker, sl unsteady w/OOb activity; denies dizziness; pt c/o 'legs weak' d/t spinal stenosis. Speech clear; NIHSS 0. VSS.
Telemetry:NSR> On room air- pulse ox 95%, no SOB noted. Abd obese, soft, jessica PO well. Voids in BR without difficulty. Resting in bed at present, daughter at bedside. Will continue to monitor.
--- NOTE | 2024-02-18 16:48 | CM ---
DEEPTHI pursuing [facility] authorization to [place] [facility] for this evening. On hold for 54 minutes so far with IBC.
--- NOTE | 2024-02-18 17:34 | CM ---
Addendum entered by Karen Corado 02/19/24 11:17:
DEEPTHI received authorization for transfer to [facility]; reviewed with Aby at [facility]. Skilled level of care Approval 02/17-02/22/2024 with NRD 02/22/2024 to be called to .
Patient was discharged to [facility] last evening via family transport.
Original Note:
DEEPTHI called [facility] for SNF authorization, spoke with Stacey who advised that it was after hours, so she was unable to complete the auth. I advised that the patient was ready for discharge today, so she agreed to take the clinical and quickly approved,
but will not be able to provide the actual auth# for [facility] until tomorrow morning, and will 'retro' the auth. Stacey will call me in the morning.
Plan: Discharge to [facility] via family transport.
[facility] Report: [phone]
[facility]
[2024-02-18 17:55] LABS: Glucose - Point of Care 172 mg/dl (70-99)
[2024-02-18] MEDS: LIPITOR 40 MG PO (17:56)
[2024-02-18 20:21] LABS: Albumin 3.58 g/dL (3.75-5.01); Alpha 1 Globulin 0.24 g/dL (0.19-0.46); SPEP IFE Reflex Not Done; Total Protein-Electrophoresis 6.1 g/dL (6.3-8.2)
[2024-02-19 18:43] LABS: Vitamin B1, Whole Blood 144 nmol/L (70-180)
== END 2024-02-18 19:37 | DRG 305 ==
LOC: 4 EAST ACU 18:21
PROVIDERS: Clinical Nurse Specialist Family Health; Hospitalist; Nurse Practitioner Family; Student in an Organized Health Care Education/Training Program; ADMITTING PHYSICIAN Internal Medicine; ATTENDING PHYSICIAN Internal Medicine; CONSULT PHYSICIAN Psychiatry & Neurology Psychiatry; EMERGENCY PHYSICIAN Emergency Medicine; OTHER PHYSICIAN Psychiatry & Neurology Neurology
DX: I16.1 Hypertensive emergency (principal); R47.01 Aphasia; I67.4 Hypertensive encephalopathy; F11.20 Opioid dependence, uncomplicated; I12.9 Hypertensive chronic kidney disease with stage 1 through stage 4 chronic kidney disease, or unspecified chronic kidney disease; E03.9 Hypothyroidism, unspecified; M48.061 Spinal stenosis, lumbar region without neurogenic claudication; M54.16 Radiculopathy, lumbar region; E11.40 Type 2 diabetes mellitus with diabetic neuropathy, unspecified; E11.22 Type 2 diabetes mellitus with diabetic chronic kidney disease; E78.00 Pure hypercholesterolemia, unspecified; G89.29 Other chronic pain; K21.9 Gastro-esophageal reflux disease without esophagitis; K22.70 Barrett's esophagus without dysplasia; I35.1 Nonrheumatic aortic (valve) insufficiency; N39.3 Stress incontinence (female) (male); R29.6 Repeated falls; K58.9 Irritable bowel syndrome, unspecified; M19.90 Unspecified osteoarthritis, unspecified site; I65.21 Occlusion and stenosis of right carotid artery; R26.0 Ataxic gait; N18.2 Chronic kidney disease, stage 2 (mild); R82.71 Bacteriuria; R47.02 Dysphasia; E66.09 Other obesity due to excess calories; Z68.34 Body mass index [BMI] 34.0-34.9, adult; Z96.653 Presence of artificial knee joint, bilateral; Z86.73 Personal history of transient ischemic attack (TIA), and cerebral infarction without residual deficits; Z87.440 Personal history of urinary (tract) infections; Z79.899 Other long term (current) drug therapy; Z79.890 Hormone replacement therapy; Z79.82 Long term (current) use of aspirin; Z79.84 Long term (current) use of oral hypoglycemic drugs
CPT/HCPCS: 70450; 70496; 70498; 70551; 80048; 80053; 80061; 81003; 81015; 82607; 82962; 83036; 84155; 84165; 84425; 84484; 85025; 85027; 85576; 85610; 85730; 87070; 87086; 92523; 92610; 93005; 93306; 97116; 97162; 97165; 97535; 99285; Q9967

== ENCOUNTER → 2024-10-09 13:26 | Outpatient (REF) | payer OTHER, SELFPAY | LOC: HWWDC 13:26 | PROVIDERS: ATTENDING PHYSICIAN Family Medicine | DX: Z12.31 Encounter for screening mammogram for malignant neoplasm of breast (principal) | CPT/HCPCS: 77063; 77067 ==

== ENCOUNTER → 2025-02-25 10:32 | Outpatient (REF) | payer OTHER, SELFPAY ==
[2025-02-25 10:58] LABS: Blood Urea Nitrogen 28 mg/dl (7-17); Calcium 10.0 mg/dl (8.4-10.2); Carbon Dioxide 24 mmol/L (22-30); Chloride 106 mmol/L (98-107); Glucose 171 mg/dl (70-99); Potassium 4.7 mmol/L (3.5-5.1); Sodium 136 mmol/L (135-145); eGFR 49.86
== END ==
LOC: OLABPV 10:32
PROVIDERS: ATTENDING PHYSICIAN Family Medicine
DX: N18.31 Chronic kidney disease, stage 3a (principal)
CPT/HCPCS: 36415; 80048